=== PATIENT | male | born 2000 | race Hispanic/Latino ===

== ENCOUNTER 2022-08-09 00:03 | Emergency (ER) | payer SELFPAY ==
--- OUTSIDE RECORDS SUMMARY | 2022-08-09 00:11 | XMS REPORT | Continuity of Care Document ---
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 Interpretation Comments AGAP (test code = AGAP) 12.5 10.0-20.0 [facility]2018-08-12 09:47:00 Test Item Value Reference Range Interpretation Comments B/C Ratio (test code = B/C Ratio) 13 1 6-25 [facility]2018-08-12 09:47:00 Test Item Value Reference Range Interpretation Comments AST (test code = AST) 13 See_Comment [Auto mated message] The system which ge nerated this result transmit ria reference range : <=37. The reference range was not used to interpr et this result as bennett l/abnormal. [facility]2018-08-12 09:47:00 Test Item Value Reference Range Interpretation Comments Alk Phos (test code = Alk Phos) 72 39-136 [facility]2018-08-12 09:47:00 Test Item Value Reference Range Interpretation Comments ALT (test code = ALT) 17 See_Comment [Auto mated message] The system which ge nerated this result transmit ria reference range : <=65. The reference range was not used to interpr et this result as bennett l/abnormal. [facility]2018-08-12 09:47:00 Test Item Value Reference Range Interpretation Comments eGFR (test code = eGFR) 131 [facility]2018-08-12 09:47:00 Test Item Value Reference Range Interpretation Comments Bili Total (test code = Bili Total) 0.4 0.2-1.3 [facility]2018-08-12 09:47:00 Test Item Value Reference Range Interpretation Comments Albumin Lvl (test code = Albumin Lvl) 4.2 3.5-5.0 [facility]2018-08-12 09:47:00 Test Item Value Reference Range Interpretation Comments Calcium Lvl (test code = Calcium Lvl) 8.7 8.5-10.5 [facility]2018-08-12 09:47:00 Test Item Value Reference Range Interpretation Comments Total Protein (test code = Total 8.1 6.4-8.4 Protein) [facility]2018-08-12 09:47:00 Test Item Value Reference Range Interpretation Comments Chloride Lvl (test code = Chloride Lvl) 108 95-109 [place] [id number] 09:47:00 Test Item Value Reference Range Interpretation Comments CO2 (test code = CO2) 27 24-32 [facility] PlayCanvasannCHEM [id number] 09:47:00 Test Item Value Reference Range Interpretation Comments Potassium Lvl (test code = Potassium 3.5 3.5-5.1 Lvl) [facility] Centerann[facility]inalysis [id number] 11:03:00 Test Item Value Reference Range Interpretation Comments Color (test code = COLOR) Yellow Yellow,Straw,Pl N yellow Clarity (test code = Clear Clear N CLAR) Specific [place] (test 1.008 1.001-1.035 N code = SPGR) pH (test code = PH) 6.5 5.0-9.0 N Ketone (test code = KET) 50 mg/dL Negative A Glucose (test code = Negative mg/dL Negative N GLUCUR) Protein (test code = Negative mg/dL Negative N PROT) Bilirubin (test code = Negative mg/dL Negative N BILI) Occult Blood (test code = Small Negative A UDOB) Urobilinogen (test code = 0.2 mg/dL 0.2-1.0 N UROB) Nitrite (test code = NIT) Negative Negative N Leuk Esterase (test code Negative Negative N = LEUK) Micros Exam (test code = Indicated MEXAM) Epithelial Cells (test 3-5 /LPF 0-30 A code = EPI) WBC, Urine (test code = 0-5 /HPF 0-5 N UWBC) RBC, Urine (test code = 0-3 /HPF 0-5 A URBC) Bacteria (test code = Few /HPF BACT) [id number] 10:50:00 Test Item Value Reference Range Interpretation Comments Amphetamine (test code Negative Negative N For d iagnostic purposes = AMPH) only, positive results should always b e assessedin conjunctionwith the patient's medic al history,clinica l examination and otherfindings.T o fulfill legal requirements, a more specific altern ate chemical method must be used inorder to obtain a Confirmed iva lytical result. GC/MS i s the preferred confi rmatory method. Barbiturates (test Negative Negative N code = IVET) Benzodiazepine (test Negative Negative N code = MARIA ALEJANDRA) Cocaine (test code = Negative Negative N COCA) Methadone (test code = Negative Negative N MTHD) Opiates (test code = Negative Negative N OPIA) PCP (test code = PCP) Negative Negative N Propoxyphene (test Negative Negative N code = PROPOX) THC (test code = THC) POSITIVE Negative A [id number] 18:39:00 Test Item Value Reference Range Interpretation Comments Lymphocytes (test code = Lymphocytes) 22.2 20.0-40.0 [id number] 18:39:00 Test Item Value Reference Range Interpretation Comments Platelet (test code = Platelet) 241 133-450 [id number] 18:39:00 Test Item Value Reference Range Interpretation Comments RDW (test code = RDW) 13.6 11.5-14.5 [facility] H[id number] 18:39:00 Test Item Value Reference Range Interpretation Comments MPV (test code = MPV) 8.6 7.4-10.4 [facility] Hospit[id number] 18:39:00 Test Item Value Reference Range Interpretation Comments MCH (test code = MCH) 30.6 pg 27.0-31.0 [facility] Hospit[id number] 18:39:00 Test Item Value Reference Range Interpretation Comments MCHC (test code = MCHC) 33.4 32.0-36.0 [facility] [id number] 18:39:00 Test Item Value Reference Range Interpretation Comments Hgb (test code = Hgb) 12.6 14.0-18.0 [facility] H[id number] 18:39:00 Test Item Value Reference Range Interpretation Comments Hct (test code = Hct) 37.7 42.0-54.0 [facility] HospitalKachichVVJHNLWUHB2087-28-51 18:39:00 Test Item Value Reference Range Interpretation Comments MCV (test code = MCV) 91.7 80.0-94.0 [facility] Hospit[id number] 18:39:00 Test Item Value Reference Range Interpretation Comments WBC (test code = WBC) 9.7 3.7-10.4 [facility] Hospit[id number] 18:39:00 Test Item Value Reference Range Interpretation Comments RBC (test code = RBC) 4.11 4.70-6.10 [facility] H[id number] 18:39:00 Test Item Value Reference Range Interpretation Comments Segs-Bands # (test code = Segs-Bands #) 6.9 1.5-8.1 [facility] H[id number] 18:39:00 Test Item Value Reference Range Interpretation Comments Lymphocytes # (test code = Lymphocytes 2.2 1.0-5.5 #) [facility] Hospit[id number] 18:39:00 Test Item Value Reference Range Interpretation Comments Monocytes # (test code 0.5 See_Comment [Aut omated message] The = Monocytes #) system which generated this result tra nsmitted reference range : <=0.8. The reference r becki was not used to int erpret this result as normal/abnormal . [facility] HospitalTwwjlmrTZEYFINQMD7095-20-77 18:39:00 Test Item Value Reference Range Interpretation Comments Monocytes (test code = Monocytes) 4.7 2.0-12.0 [facility] Hospit[id number] 18:39:00 Test Item Value Reference Range Interpretation Comments Eosinophils # (test code 0.1 See_Comment [A utomated message] The = Eosinophils #) system wh h generated this result tra nsmitted reference range : <=0.5. The reference r becki was not used to int erpret this result as normal/abnormal . [facility] H[id number] 18:39:00 Test Item Value Reference Range Interpretation Comments Basophils # (test code 0.1 See_Comment [Aut omated message] The = Basophils #) system which generated this result tra nsmitted reference range : <=0.2. The reference r becki was not used to int erpret this result as normal/abnormal . [facility] Ho[id number] 18:39:00 Test Item Value Reference Range Interpretation Comments Eosinophils (test code = 1.3 See_Comment [A utomated message] The Eosinophils) system which ge nerated this result tra nsmitted reference range : <=4.0. The reference r becki was not used to int erpret this result as normal/abnormal . [facility] HospitalLssngljODCEEQCWYL6930-29-30 18:39:00 Test Item Value Reference Range Interpretation Comments Basophils (test code = 0.8 See_Comment [Aut omated message] The Basophils) system which ge nerated this result tra nsmitted reference range : <=1.0. The reference r becki was not used to int erpret this result as normal/abnormal . [facility] CenterTpxleqiEHARTYQQQK0762-03-78 18:39:00 Test Item Value Reference Range Interpretation Comments Segs (test code = Segs) 71.0 45.0-75.0 [facility] AND [id number] 15:25:00 Test Item Value Reference Range Interpretation Comments UA Mucus (test code = UA Mucus) Few /LPF [facility] AND [id number] 15:25:00 Test Item Value Reference Range Interpretation Comments UA Urobilinogen (test code = UA <=1.0 mg/dL 0.1-1.0 Urobilinogen) [facility] AND [id number] 15:25:00 Test Item Value Reference Range Interpretation Comments UA Color (test code = Yellow *NA*(04/21/15 UA Color) 10:25 AM) [facility] AND [id number] 15:25:00 Test Item Value Reference Range Interpretation Comments UA Spec Grav (test code = UA Spec Grav) 1.012 [facility] AND [id number] 15:25:00 Test Item Value Reference Range Interpretation Comments UA Turbidity (test code = Clear (04/21/15 10:25 UA Turbidity) AM) [facility] AND [id number] 15:25:00 Test Item Value Reference Range Interpretation Comments UA Ketones (test code = UA Negative mg/dL Ketones) [facility] AND [id number] 15:25:00 Test Item Value Reference Range Interpretation Comments UA pH (test code = UA pH) 6.0 5.0-8.0 [facility] AND [id number] 15:25:00 Test Item Value Reference Range Interpretation Comments UA Glucose (test code = UA Negative mg/dL Glucose) [facility] AND [id number] 15:25:00 Test Item Value Reference Range Interpretation Comments UA Protein (test code = UA Negative mg/dL Protein) [facility] AND [id number] 15:25:00 Test Item Value Reference Range Interpretation Comments UA Leuk Est (test Negative (04/21/15 10:25 code = UA Leuk Est) AM) [facility] AND [id number] 15:25:00 Test Item Value Reference Range Interpretation Comments UA Nitrite (test code Negative (04/21/15 10:25 = UA Nitrite) AM) [facility] AND [id number] 15:25:00 Test Item Value Reference Range Interpretation Comments UA Blood (test code = Negative (04/21/15 10:25 UA Blood) AM) [facility] AND [id number] 15:25:00 Test Item Value Reference Range Interpretation Comments UA Bili (test code = Negative *NA*(04/21/15 UA Bili) 10:25 AM) [facility] AND [id number] 15:25:00 Test Item Value Reference Range Interpretation Comments UA WBC (test code = no gt See_Comment [Automa ria message] The UA WBC) system which ge nerated this result transmit ria reference range : <=5. The reference range was not used to interpr et this result as bennett l/abnormal. [facility] AND [id number] 15:25:00 Test Item Value Reference Range Interpretation Comments UA RBC (test code = 1 See_Comment [Automa ria message] The UA RBC) system which ge nerated this result transmit ria reference range : <=2. The reference range was not used to interpr et this result as bennett l/abnormal. [facility] AND [id number] 15:25:00 Test Item Value Reference Range Interpretation Comments UA Sq Epi (test code = UA Sq Occasional /LPF Epi) [facility]2015-06-12 10:03:00 Test Item Value Reference Range Interpretation Comments eGFR (test code = eGFR) 89 [facility]2015-06-12 10:03:00 Test Item Value Reference Range Interpretation Comments CO2 (test code = CO2) 23 24-32 [facility]2015-06-12 10:03:00 Test Item Value Reference Range Interpretation Comments Potassium Lvl (test code = Potassium 4.5 3.5-5.1 Lvl) [facility]2015-06-12 10:03:00 Test Item Value Reference Range Interpretation Comments Creatinine Lvl (test code = Creatinine 0.8 0.5-1.4 Lvl) [facility]2015-06-12 10:03:00 Test Item Value Reference Range Interpretation Comments Chloride Lvl (test code = Chloride Lvl) 104 95-109 [facility] [id number] 10:03:00 Test Item Value Reference Range Interpretation Comments AGAP (test code = AGAP) 12.5 10.0-20.0 [facility] Center[facility] [id number] 10:03:00 Test Item Value Reference Range Interpretation Comments Calcium Lvl (test code = Calcium Lvl) 8.3 8.5-10.5 [facility] [id number] 10:03:00 Test Item Value Reference Range Interpretation Comments Sodium Lvl (test code = Sodium Lvl) 135 135-145 [facility] [id number] 10:03:00 Test Item Value Reference Range Interpretation Comments Glucose Lvl (test code = Glucose Lvl) 119 70-99 [facility] [id number] 10:03:00 Test Item Value Reference Range Interpretation Comments BUN (test code = BUN) 17 7-22 [facility] CenterSprig Toys [id number] 10:03:00 Test Item Value Reference Range Interpretation Comments U Amph Scr (test code Negative *NA*(04/20/15 = U Amph Scr) 5:03 AM) [facility] CenterDR[facility] [id number] 10:03:00 Test Item Value Reference Range Interpretation Comments U Cocaine Scr (test Negative *NA*(04/20/15 code = U Cocaine Scr) 5:03 AM) [facility] CenterSpr[facility] Toys [id number] 10:03:00 Test Item Value Reference Range Interpretation Comments U Benzodia Scr (test Positive *ABN*(04/20/15 code = U Benzodia Scr) 5:03 AM) [facility] CenterDR[facility] [id number] 10:03:00 Test Item Value Reference Range Interpretation Comments U Ivet Scr (test code Negative *NA*(04/20/15 = U Ivet Scr) 5:03 AM) [facility] CenterDR[facility] [id number] 10:03:00 Test Item Value Reference Range Interpretation Comments U Cannab Scr (test Positive *ABN*(04/20/15 code = U Cannab Scr) 5:03 AM) [facility] CenterSpr[facility] To[facility] [id number] 10:03:00 Test Item Value Reference Range Interpretation Comments UDS Note (test code = See Note 6(04/20/15 5:03 UDS Note) AM) [facility] CenterDR[facility] [id number] 10:03:00 Test Item Value Reference Range Interpretation Comments U Phencyc Scr (test Negative *NA*(04/20/15 code = U Phencyc Scr) 5:03 AM) [facility] CenterDR[facility] [id number] 10:03:00 Test Item Value Reference Range Interpretation Comments U Opiate Scr (test Positive *ABN*(04/20/15 code = U Opiate Scr) 5:03 AM) [facility] Hos[id number] 10:03:00 Test Item Value Reference Range Interpretation Comments PTT (test code = PTT) 24.2 s 22.9-35.8 [facility] H[id number] 10:03:00 Test Item Value Reference Range Interpretation Comments Monocytes # (test code 1.0 See_Comment [Aut omated message] The = Monocytes #) system which generated this result tra nsmitted reference range : <=0.8. The reference r becki was not used to int erpret this result as normal/abnormal . [facility] H[id number] 10:03:00 Test Item Value Reference Range Interpretation Comments Basophils # (test code 0.1 See_Comment [Aut omated message] The = Basophils #) system which generated this result tra nsmitted reference range : <=0.2. The reference r becki was not used to int erpret this result as normal/abnormal . [facility] H[id number] 10:03:00 Test Item Value Reference Range Interpretation Comments Lymphocytes # (test code = Lymphocytes 2.7 1.0-5.5 #) [facility] Hospit[id number] 10:03:00 Test Item Value Reference Range Interpretation Comments Segs-Bands # (test code = Segs-Bands #) 12.6 1.5-8.1 [facility] Hospit[id number] 10:03:00 Test Item Value Reference Range Interpretation Comments Basophils (test code = 0.4 See_Comment [Aut omated message] The Basophils) system which ge nerated this result tra nsmitted reference range : <=1.0. The reference r becki was not used to int erpret this result as normal/abnormal . [facility] HospitalAhmftcnBVRZJLQHZQ0196-31-10 10:03:00 Test Item Value Reference Range Interpretation Comments Monocytes (test code = Monocytes) 6.1 2.0-12.0 [facility] Ho[id number] 10:03:00 Test Item Value Reference Range Interpretation Comments Segs (test code = Segs) 76.9 45.0-75.0 [facility] HospitalAvwavbgSEDIMKWMSY0478-00-53 10:03:00 Test Item Value Reference Range Interpretation Comments Eosinophils (test code = 0.1 See_Comment [A utomated message] The Eosinophils) system which ge nerated this result tra nsmitted reference range : <=4.0. The reference r becki was not used to int erpret this result as normal/abnormal . [facility] HospitalPayjibcMZVGRJCZNH5740-51-70 10:03:00 Test Item Value Reference Range Interpretation Comments Lymphocytes (test code = Lymphocytes) 16.5 20.0-40.0 [facility] Hospit[id number] 10:03:00 Test Item Value Reference Range Interpretation Comments Platelet (test code = Platelet) 234 133-450 [facility] Hospit[id number] 10:03:00 Test Item Value Reference Range Interpretation Comments RDW (test code = RDW) 13.3 11.5-14.5 [facility] Ho[id number] 10:03:00 Test Item Value Reference Range Interpretation Comments MPV (test code = MPV) 7.9 7.4-10.4 [facility] Hospit[id number] 10:03:00 Test Item Value Reference Range Interpretation Comments MCHC (test code = MCHC) 34.2 32.0-36.0 [facility] HospitalMolwztyJFRAAZVHMU2862-16-15 10:03:00 Test Item Value Reference Range Interpretation Comments RBC (test code = RBC) 4.48 4.70-6.10 [facility] Hospit[id number] 10:03:00 Test Item Value Reference Range Interpretation Comments WBC (test code = WBC) 16.4 3.7-10.4 [facility] Hospit[id number] 10:03:00 Test Item Value Reference Range Interpretation Comments Hct (test code = Hct) 41.0 42.0-54.0 [facility] Hospit[id number] 10:03:00 Test Item Value Reference Range Interpretation Comments MCV (test code = MCV) 91.5 80.0-94.0 [facility] Hospit[id number] 10:03:00 Test Item Value Reference Range Interpretation Comments Hgb (test code = Hgb) 14.0 14.0-18.0 [facility] HospitalJdnivpoNZGBHRHWLF1746-94-09 10:03:00 Test Item Value Reference Range Interpretation Comments MCH (test code = MCH) 31.3 pg 27.0-31.0 [facility] AND [id number] 10:03:00 Test Item Value Reference Range Interpretation Comments UA Spec Grav (test >=1.050 *ABN*(04/20/15 code = UA Spec Grav) 5:03 AM) [facility] AND [id number] 10:03:00 Test Item Value Reference Range Interpretation Comments UA Urobilinogen (test code = UA <=1.0 mg/dL 0.1-1.0 Urobilinogen) [facility] AND [id number] 10:03:00 Test Item Value Reference Range Interpretation Comments UA Mucus (test code = UA Mucus) Few /LPF [facility] AND [id number] 10:03:00 Test Item Value Reference Range Interpretation Comments UA Sq Epi (test code = UA Sq Epi) Few /LPF [facility] AND [id number] 10:03:00 Test Item Value Reference Range Interpretation Comments UA RBC (test code = 8 See_Comment [Automa ria message] The UA RBC) system which ge nerated this result transmit ria reference range : <=2. The reference range was not used to interpr et this result as bennett l/abnormal. [facility] AND [id number] 10:03:00 Test Item Value Reference Range Interpretation Comments UA Nitrite (test code Negative (04/20/15 5:03 = UA Nitrite) AM) [facility] AND [id number] 10:03:00 Test Item Value Reference Range Interpretation Comments UA Blood (test code = Trace *ABN*(04/20/15 UA Blood) 5:03 AM) [facility] AND [id number] 10:03:00 Test Item Value Reference Range Interpretation Comments UA Leuk Est (test Negative (04/20/15 5:03 code = UA Leuk Est) AM) [facility] AND [id number] 10:03:00 Test Item Value Reference Range Interpretation Comments UA Glucose (test code = UA Negative mg/dL Glucose) [facility] AND [id number] 10:03:00 Test Item Value Reference Range Interpretation Comments UA Ketones (test code = UA Negative mg/dL Ketones) [facility] AND [id number] 10:03:00 Test Item Value Reference Range Interpretation Comments UA Bili (test code = Negative *NA*(04/20/15 UA Bili) 5:03 AM) [facility] AND [id number] 10:03:00 Test Item Value Reference Range Interpretation Comments UA Protein (test code = UA Protein) 30 mg/dL [facility] AND [id number] 10:03:00 Test Item Value Reference Range Interpretation Comments UA Color (test code = Yellow *NA*(04/20/15 UA Color) 5:03 AM) [facility] AND [id number] 10:03:00 Test Item Value Reference Range Interpretation Comments UA pH (test code = UA pH) 6.0 5.0-8.0 [facility] AND [id number] 10:03:00 Test Item Value Reference Range Interpretation Comments UA Turbidity (test code = Clear (04/20/15 5:03 UA Turbidity) AM) [facility] CentermusiXmatch [facility] [id number] 02:51:00 Test Item Value Reference Range Interpretation Comments Antibody Scrn (test Negative (04/19/15 9:51 code = Antibody Scrn) PM) [facility] [employer] [facility] [id number] 02:51:00 Test Item Value Reference Range Interpretation Comments ABO/Rh (test code = ABO/Rh) B POS [facility] NuikuCHEM [id number] 02:41:00 Test Item Value Reference Range Interpretation Comments Lactic Acid Lvl (test code = Lactic 1.3 0.5-2.2 Acid Lvl) [facility][id number] 02:41:00 Test Item Value Reference Range Interpretation Comments AGAP (test code = AGAP) 15.7 10.0-20.0 [facility] HospitalEyvjzapCYYIILHBQYBN7831-78-75 02:41:00 Test Item Value Reference Range Interpretation Comments eGFR (test code = eGFR) 82 [facility]UcezijePYXPIPMAXYVF5454-80-26 02:41:00 Test Item Value Reference Range Interpretation Comments Creatinine Lvl (test code = Creatinine 0.9 0.5-1.4 Lvl) [id number] 02:41:00 Test Item Value Reference Range Interpretation Comments BUN (test code = BUN) 16 7-22 [id number] 02:41:00 Test Item Value Reference Range Interpretation Comments Glucose Lvl (test code = Glucose Lvl) 98 70-99 [facility]JziinylZFSAYNTCUQOZ6496-17-29 02:41:00 Test Item Value Reference Range Interpretation Comments Calcium Lvl (test code = Calcium Lvl) 8.9 8.5-10.5 [facility]UpcozjzVSUWWNNRYYEX8704-19-07 02:41:00 Test Item Value Reference Range Interpretation Comments CO2 (test code = CO2) 26 24-32 [facility]YnjbdqaCNFPDGLBEVOY4728-53-70 02:41:00 Test Item Value Reference Range Interpretation Comments Chloride Lvl (test code = Chloride Lvl) 101 95-109 [facility] HospitalBlhznnoPCNWAEQTYVFZ0714-75-68 02:41:00 Test Item Value Reference Range Interpretation Comments Potassium Lvl (test code = Potassium 3.7 3.5-5.1 Lvl) [facility] HospitalOchenfcRWDOXVPOQHEM9665-00-34 02:41:00 Test Item Value Reference Range Interpretation Comments Sodium Lvl (test code = Sodium Lvl) 139 135-145 [facility]JswskqvVWOZDNDVUC4612-91-67 02:41:00 Test Item Value Reference Range Interpretation Comments WBC (test code = WBC) 12.4 3.7-10.4 [facility] HospitalHmlfrffVSQQZSJXTZ8341-63-10 02:41:00 Test Item Value Reference Range Interpretation Comments RBC (test code = RBC) 4.97 4.70-6.10 [facility] HospitalBlgqjnyRUWKEZQHVW2918-96-64 02:41:00 Test Item Value Reference Range Interpretation Comments Hgb (test code = Hgb) 14.2 14.0-18.0 [facility] HospitalAdttdgmQOWQZVROLH8286-77-39 02:41:00 Test Item Value Reference Range Interpretation Comments Hct (test code = Hct) 45.0 42.0-54.0 [facility] HospitalSvjqlhyBHFTGSVSLQ2138-96-60 02:41:00 Test Item Value Reference Range Interpretation Comments MCV (test code = MCV) 90.4 80.0-94.0 [facility] HospitalZbotoesMUARHWSUDG0871-91-75 02:41:00 Test Item Value Reference Range Interpretation Comments MCH (test code = MCH) 28.6 pg 27.0-31.0 [facility] HospitalRgmngkbQWJLSLQEXL6883-91-43 02:41:00 Test Item Value Reference Range Interpretation Comments MCHC (test code = MCHC) 31.7 32.0-36.0 [facility] Hospit[id number] 02:41:00 Test Item Value Reference Range Interpretation Comments RDW (test code = RDW) 12.6 11.5-14.5 [facility] HospitalFfpusucVBJCAPODEJ0229-49-24 02:41:00 Test Item Value Reference Range Interpretation Comments Platelet (test code = Platelet) 259 133-450 [facility] HospitalIugtusjYCKEFIZQLJ1748-20-19 02:41:00 Test Item Value Reference Range Interpretation Comments MPV (test code = MPV) 8.2 7.4-10.4 [facility] HospitalOdigevtRWEMBOLLWY0257-67-26 02:41:00 Test Item Value Reference Range Interpretation Comments G-value (test code = G-value) 7.7 5.0-11.6 [facility] HospitalGdxaxszQMCDPQGBII5297-24-67 02:41:00 Test Item Value Reference Range Interpretation Comments Estimated % Lysis (test 10.9 See_Comment [Au tomated message] The code = Estimated % system wh ich generated Lysis) this result tra nsmitted reference range : <=7.5. The reference r becki was not used to int erpret this result as normal/abnormal . [facility] HospitalEsouurqRKNZDWPBHQ2046-04-52 02:41:00 Test Item Value Reference Range Interpretation Comments Max Amp (test code = Max Amp) 61 mm 52-71 [facility] HospitalMftkcqpXNZQMAMDSC4866-54-18 02:41:00 Test Item Value Reference Range Interpretation Comments Angle (test code = Angle) 72 degrees 64-80 [facility] HospitalKpdhjugECSUUTHTOA5685-24-29 02:41:00 Test Item Value Reference Range Interpretation Comments R-time (test code = R-time) 0.8 min 0.4-0.7 [facility] HospitalCmmfskxGDYXHBXTMM8554-19-58 02:41:00 Test Item Value Reference Range Interpretation Comments K-time (test code = K-time) 1.4 min 0.6-2.3 [facility] HospitalYniinrcMEFGSVDYOP2700-50-21 02:41:00 Test Item Value Reference Range Interpretation Comments Split Point (test code = Split Point) 0.6 min [facility] HospitalZeyzyghMVLCYQTIGU0993-28-33 02:41:00 Test Item Value Reference Range Interpretation Comments ACT (TEG) (test code = ACT (TEG)) 121 s 86-118 [facility] HospitalNpcsbwuTQEWOCPQUS6091-02-63 02:41:00 Test Item Value Reference Range Interpretation Comments Rapid TEG Sample Type Citrated Whole Blood (test code = Rapid TEG Sample Type) [facility] HospitalTubhezcPDEVFCEPNU3961-39-14 02:41:00 Test Item Value Reference Range Interpretation Comments RBC Morph (test code = Normal (04/19/15 9:41 RBC Morph) PM) [facility] HospitalNunponkWACENJJWWO9423-19-32 02:41:00 Test Item Value Reference Range Interpretation Comments Plt Morph (test code = Normal (04/19/15 9:41 Plt Morph) PM) [facility] HospitalUvcvuooFJFOSVRGGT8688-18-57 02:41:00 Test Item Value Reference Range Interpretation Comments Tot Cell Ct (test code = Tot Cell Ct) 100 1 [facility] Hospit[id number] 02:41:00 Test Item Value Reference Range Interpretation Comments Basophils (test code = 1.0 See_Comment [Aut omated message] The Basophils) system which ge nerated this result tra nsmitted reference range : <=1.0. The reference r becki was not used to int erpret this result as normal/abnormal . [facility] HospitalIemfdksSPXIBXLHIG6899-24-98 02:41:00 Test Item Value Reference Range Interpretation Comments Atypical Lymphs (test code = Atypical 1.0 Lymphs) [facility] HospitalTzpuknnMFJGJAYFUQ6461-90-86 02:41:00 Test Item Value Reference Range Interpretation Comments Lymphocytes (test code = Lymphocytes) 32.0 20.0-40.0 [facility] HospitalQzlgtmuCMGPBALZED6177-27-31 02:41:00 Test Item Value Reference Range Interpretation Comments Monocytes (test code = Monocytes) 5.0 2.0-12.0 [facility] Hospit[id number] 02:41:00 Test Item Value Reference Range Interpretation Comments Bands (test code = 0.0 See_Comment [Automat ed message] The Bands) system which ge nerated this result transmit ria reference range : <=11.0. The reference r becki was not used to interpr et this result as bennett l/abnormal. [facility] HospitalPhlihogPWRXCLXAXE5002-11-56 02:41:00 Test Item Value Reference Range Interpretation Comments Monocytes # (test code 0.6 See_Comment [Aut omated message] The = Monocytes #) system which generated this result tra nsmitted reference range : <=0.8. The reference r becki was not used to int erpret this result as normal/abnormal . [facility] Ho[id number] 02:41:00 Test Item Value Reference Range Interpretation Comments Basophils # (test code 0.1 See_Comment [Aut omated message] The = Basophils #) system which generated this result tra nsmitted reference range : <=0.2. The reference r becki was not used to int erpret this result as normal/abnormal . [facility] HospitalGgnwdivHCOAUQLOHZ9534-93-28 02:41:00 Test Item Value Reference Range Interpretation Comments Lymphocytes # (test code = Lymphocytes 4.1 1.0-5.5 #) [facility] Hos[id number] 02:41:00 Test Item Value Reference Range Interpretation Comments Segs (test code = Segs) 61.0 45.0-75.0 [facility] HospitalDvjjbjvMKNUSBPFAV6507-92-34 02:41:00 Test Item Value Reference Range Interpretation Comments Segs-Bands # (test code = Segs-Bands #) 7.6 1.5-8.1 [place] [id number] 02:34:00 Test Item Value Reference Range Interpretation Comments Ethanol Lvl (test code = Ethanol Lvl) 3 [place] [id number] 02:34:00 Test Item Value Reference Range Interpretation Comments Etoh (%) (test code = Etoh (%)) 0.003 [facility]
[2022-08-09] MEDS ORDERED: LIDOCAINE 1% MPF 30 ML VIAL ONE (00:41)
--- NOTE | 2022-08-09 00:51 | EDPHYS ---
Physician Documentation [facility] Name: Abhijit Urrutia Age: 22 yrs Sex: Male : 2000 Arrival Date: 08/09/2022 Time: 00:06 Bed 6 Private MD: GILMA Physician Josh Villarreal HPI: 08/09 00:46 This 22 yrs old Male presents to ER via Ambulatory with complaints of seth Laceration To Hand. 00:46 The patient has a laceration related to: playing, from a sharp metal object, occurred seth at home. The laceration(s) is(are) located on the Left first web space. Onset: The symptoms/episode began/occurred just prior to arrival. Associated signs and symptoms: The patient has no apparent associated signs or symptoms. The patient has not experienced similar symptoms in the past. Historical: - Allergies: 00:12 NKA; as6 - PMHx: 00:12 ADD/ADHD; Seizures; as6 - PSHx: 00:12 arm; as6 - Immunization history:: Client reports having NOT received the Covid vaccine. Last tetanus immunization: not immunized. - Social history:: Smoking status: Patient reports the use of cigarette tobacco products, smokes one pack cigarettes per day. ROS: 00:47 Constitutional: Negative for fever, chills, and weight loss, Eyes: Negative for injury, seth pain, redness, and discharge, ENT: Negative for injury, pain, and discharge, Neck: Negative for injury, pain, and swelling, Cardiovascular: Negative for chest pain, palpitations, and edema, Respiratory: Negative for shortness of breath, cough, wheezing, and pleuritic chest pain, Abdomen/GI: Negative for abdominal pain, nausea, vomiting, diarrhea, and constipation, Back: Negative for injury and pain, : Negative for injury, bleeding, discharge, and swelling, Skin: Negative for injury, rash, and discoloration, Neuro: Negative for headache, weakness, numbness, tingling, and seizure, Psych: Negative for depression, anxiety, suicide ideation, homicidal ideation, and hallucinations, Allergy/Immunology: Negative for hives, rash, and allergies, Endocrine: Negative for neck swelling, polydipsia, polyuria, polyphagia, and marked weight changes, Hematologic/Lymphatic: Negative for swollen nodes, abnormal bleeding, and unusual bruising. 00:47 MS/extremity: Positive for laceration, of the left hand. Exam: 00:47 Constitutional: This is a well developed, well nourished patient who is awake, alert, seth and in no acute distress. Head/Face: Normocephalic, atraumatic. Eyes: Pupils equal round and reactive to light, extra-ocular motions intact. Lids and lashes normal. Conjunctiva and sclera are non-icteric and not injected. Cornea within normal limits. Periorbital areas with no swelling, redness, or edema. ENT: Nares patent. No nasal discharge, no septal abnormalities noted. Tympanic membranes are normal and external auditory canals are clear. Oropharynx with no redness, swelling, or masses, exudates, or evidence of obstruction, uvula midline. Mucous membranes moist. Neck: Trachea midline, no thyromegaly or masses palpated, and no cervical lymphadenopathy. Supple, full range of motion without nuchal rigidity, or vertebral point tenderness. No Meningismus. Chest/axilla: Normal chest wall appearance and motion. Nontender with no deformity. No lesions are appreciated. Cardiovascular: Regular rate and rhythm with a normal S1 and S2. No gallops, murmurs, or rubs. Normal PMI, no JVD. No pulse deficits. Respiratory: Lungs have equal breath sounds bilaterally, clear to auscultation and percussion. No rales, rhonchi or wheezes noted. No increased work of breathing, no retractions or nasal flaring. Abdomen/GI: Soft, non-tender, with normal bowel sounds. No distension or tympany. No guarding or rebound. No evidence of tenderness throughout. Back: No spinal tenderness. No costovertebral tenderness. Full range of motion. Male : Normal genitalia with no discharge or lesions. Skin: Warm, dry with normal turgor. Normal color with no rashes, no lesions, and no evidence of cellulitis. Neuro: Awake and alert, GCS 15, oriented to person, place, time, and situation. Cranial nerves II-XII grossly intact. Motor strength 5/5 in all extremities. Sensory grossly intact. Cerebellar exam normal. Normal gait. Psych: Awake, alert, with orientation to person, place and time. Behavior, mood, and affect are within normal limits. 00:47 Musculoskeletal/extremity: ROM: full active range of motion, full passive range of motion, Circulation is intact in all extremities. Sensation intact. Compartment Syndrome exam of affected extremity: is normal. Vital Signs: 00:09 BP 121 / 53; Pulse 94; Resp 16 S; Temp 98.1(O); Pulse Ox 99% on R/A; Weight 90.72 kg as6 (R); Height 5 ft. 4 in. (162.56 cm) (M); Pain 7/10; 01:45 BP 126 / 63; Pulse 98; Resp 17 S; Temp 98.6(O); Pulse Ox 100% on R/A; Pain 0/10; aa9 00:09 Body Mass Index 34.33 (90.72 kg, 162.56 cm) as6 Laceration: 01:35 Wound Repair of 5cm ( 2.0in ) subcutaneous laceration to Left first web space and left seth hand. Distal neuro/vascular/tendon intact. Anesthesia: Local anesthetic administered with 8 mls of 1% lidocaine. Wound prep: Simple cleansing by me. Skin closed with 6 5-0 Prolene using interrupted sutures and sterile technique. Dressed with Neosporin. Patient tolerated well. MDM: 00:37 Patient medically screened. seth 00:45 Patient medically screened. seth 00:48 Differential diagnosis: superficial laceration. Data reviewed: vital signs, nurses seth notes. Data interpreted: secured entrance monitor: rate is 94 beats/min, rhythm is regular, Pulse oximetry: on room air is 99 %. Counseling: I had a detailed discussion with the patient and/or guardian regarding: the historical points, exam findings, and any diagnostic results supporting the discharge/admit diagnosis, the need for outpatient follow up, for definitive care, Administered Medications: No medications were administered Disposition Summary: 08/09/22 00:51 Discharge Ordered Location: Home [facility] Problem: new seth Symptoms: have improved seth Condition: Stable seth Diagnosis - Laceration without foreign body of left hand seth Followup: seth - With: Private Physician - When: 1 week - Reason: Recheck today's complaints, Continuance of care, Re-evaluation by your physician Discharge Instructions: - Discharge Summary Sheet seth - Laceration Care, Adult seth - Laceration Care, Adult, [id number]-Pmdi seth Forms: - Medication Reconciliation Form seth - Thank You Letter seth - Antibiotic Education seth - Prescription Opioid Use seth Prescriptions: - Centany 2 % Topical ointment - apply 1 application by TOPICAL route 3 times per day; 30 gram; Refills: 0, seth Product Selection Permitted - Cephalexin 500 mg Oral Capsule - take 1 capsule by ORAL route every 6 hours for 7 days; 28 capsule; Refills: 0, seth Product Selection Permitted Signatures: Josh Villarreal MD MD cha Slawson, Ashby, RN RN as6 Lynda Benson RN RN aa9
--- NOTE | 2022-08-09 00:51 | ER ---
Nurse's Notes [facility] Name: Abhijit Urrutia Age: 22 yrs Sex: Male : 2000 Arrival Date: 08/09/2022 Time: 00:06 Bed 6 Private MD: Diagnosis: Laceration without foreign body of left hand Presentation: 08/09 00:09 Chief complaint: Friend and/or Co-Worker states: "we were cooking and when I handed him as6 the knife it slipped" pt has a laceration to left hand. Coronavirus screen: At this time, the client does not indicate any symptoms associated with coronavirus-19. Ebola Screen: No symptoms or risks identified at this time. Complicating Factors: There are no complicating factors for this patient. Initial Sepsis Screen: Does the patient meet any 2 criteria? No. Patient's initial sepsis screen is negative. Does the patient have a suspected source of infection? No. Patient's initial sepsis screen is negative. Risk Assessment: Do you want to hurt yourself or someone else? Patient reports no desire to harm self or others. Onset of symptoms was August 09, 2022. 00:09 Method Of Arrival: Ambulatory as6 00:09 Acuity: CANDICE 4 as6 Triage Assessment: 00:13 General: Appears in no apparent distress. Behavior is calm, cooperative, quiet. Pain: as6 Complains of pain in left hand. Injury Description: Laceration sustained to left hand. Historical: - Allergies: 00:12 NKA; as6 - PMHx: 00:12 ADD/ADHD; Seizures; as6 - PSHx: 00:12 arm; as6 - Immunization history:: Client reports having NOT received the Covid vaccine. Last tetanus immunization: not immunized. - Social history:: Smoking status: Patient reports the use of cigarette tobacco products, smokes one pack cigarettes per day. Screenin:31 Abuse screen: Denies threats or abuse. Denies injuries from another. Nutritional aa9 screening: No deficits noted. Tuberculosis screening: No symptoms or risk factors identified. Fall Risk None identified. Assessment: 00:28 General: Appears comfortable, Behavior is cooperative, quiet. Pain: Complains of pain aa9 in left hand Pain currently is 8 out of 10 on a pain scale. Noted to be grimacing, resistant to movement. Neuro: Level of Consciousness is awake, alert, obeys commands, Oriented to person, place, time, situation. Cardiovascular: Patient's skin is warm and dry. Respiratory: Airway is patent Respiratory effort is even, unlabored. Musculoskeletal:. Injury Description: Laceration sustained to left hand is 2.6 to 7.5 cm long, not bleeding, was sustained less than 30 minutes ago. is bleeding a small amount. Vital Signs: 00:09 BP 121 / 53; Pulse 94; Resp 16 S; Temp 98.1(O); Pulse Ox 99% on R/A; Weight 90.72 kg as6 (R); Height 5 ft. 4 in. (162.56 cm) (M); Pain 7/10; 01:45 BP 126 / 63; Pulse 98; Resp 17 S; Temp 98.6(O); Pulse Ox 100% on R/A; Pain 0/10; aa9 00:09 Body Mass Index 34.33 (90.72 kg, 162.56 cm) as6 ED Course: 00:06 Patient arrived in ED. bp1 00:12 Triage completed. as6 00:13 Arm band placed on. as6 00:28 Lynda Benson, RN is Primary Nurse. aa9 00:31 Patient has correct armband on for positive identification. Bed in low position. Call aa9 light in reach. Side rails up X2. Adult w/ patient. Warm blanket given. 00:37 Josh Villarreal MD is Attending Physician. seth 01:46 Assist provider with laceration repair on left hand that was between 7.6 to 12.5 cm aa9 using sutures. Set up tray. Performed by Josh Villarreal MD Patient tolerated well. Patient did not have IV access during this emergency room visit. Administered Medications: No medications were administered Medication: 01:47 VIS not applicable for this client. aa9 Outcome: 00:51 Discharge ordered by . seth 01:46 Discharged to home ambulatory, with family. aa9 01:46 Condition: stable 01:46 Discharge instructions given to patient, family, Instructed on discharge instructions, follow up and referral plans. medication usage, Demonstrated understanding of instructions, follow-up care, medications, Prescriptions given X 2. 01:47 Patient left the ED. aa9 Signatures: Josh Villarreal MD MD cha [place], Brittany bp1 Slawson, Ashby, RN RN as6 Lynda Benson, RN RN aa9
[2022-08-09 12:11] VITALS: BP 126/63; TEMP 98.6; O2SAT 100
== END 2022-08-09 01:47 | disposition home or self-care (01) ==
LOC: ER 00:03
PROC: 0JQK0ZZ Repair Left Hand Subcutaneous Tissue and Fascia, Open Approach (ICD-10-PCS; principal; 2022-08-09)
DX: S61.412A Laceration without foreign body of left hand, initial encounter (principal); W26.0XXA Contact with knife, initial encounter; Y93.G3 Activity, cooking and baking; Y92.010 Kitchen of single-family (private) house as the place of occurrence of the external cause; F17.210 Nicotine dependence, cigarettes, uncomplicated
CPT/HCPCS: 99283

== ENCOUNTER 2022-08-28 18:30 | Emergency (ER) | payer OTHER ==
--- OUTSIDE RECORDS SUMMARY | 2022-08-28 18:33 | XMS REPORT | Continuity of Care Document ---
:2000 Author Organization [facility] t Address [address] [place] [address] Care Team Providers Name Role Phone Asked, No Pcp Primary Care Physician Unavailable BON OCONNOR Attending Clinician Unavailable MAMI SOLIZ Attending Clinician Unavailable NGOZI TOMAS Attending Clinician Unavailable NGOZI TOMAS Admitting Clinician Unavailable Payers Payer Name Policy Type Policy Number Effective Date Expiration Date Edmundo [employer] [place] [id number] 2019 2024 MEDICAID 00:00:00 00:00:00 STAR[employer]PLUS Problems This patient has no known problems. Allergies, Adverse Reactions, Alerts This patient has no known allergies or adverse reactions. Social History Social Habit Start Date Stop Date Quantity Comments Source Sex Assigned At [birth year] [facility] 00:00:00 00:00:00 Smoking Status Start Date Stop Date Source Tobacco smoking consumption unknown [facility] Medications This patient has no known medications. Procedures This patient has no known procedures. Encounters Start End Encounter Admission Attending Care Care Encounter Source Date/Time Date/Time Type Type Clinicians Facility Department ID 2021-05-23 Outpatient ELVIN [facility] [id number] [place] 01:04:46 [facility] 2021-04-25 Outpatient HEYDI [facility] [id number] [place] 09:39:[address] [facility] 2018-04-06 2018-04-06 Emergency [facility] [id number] [address] [place] [address] 15:33:00 15:33:00 [facility] 2018-04-06 2018-04-06 Outpatient [facility] [id number] [address] [place] [address] 00:00:00 00:00:00 Health 2017-07-09 2017-07-13 [facility] [id number] [address] [place] 00:00:00 00:00:00 [facility] Results Test Description Test Time Test Comments Results Result Comments Source Urinalysis Complete 2017-04-09 11:03:00 Test Item Value Reference Range Interpretation Comme nts Color (test code = COLOR) Yellow Yellow,Straw,Pl yellow N Clarity (test code = CLAR) Clear Clear N Specific [place] (test code = SPGR) 1.008 1.001-1.035 N pH (test code = PH) 6.5 5.0-9.0 N Ketone (test code = KET) 50 mg/dL Negative A Glucose (test code = GLUCUR) Negative mg/dL Negative N Protein (test code = PROT) Negative mg/dL Negative N Bilirubin (test code = BILI) Negative mg/dL Negative N Occult Blood (test code = UDOB) Small Negative A Urobilinogen (test code = UROB) 0.2 mg/dL 0.2-1.0 N Nitrite (test code = NIT) Negative Negative N Leuk Esterase (test code = LEUK) Negative Negative N Micros Exam (test code = MEXAM) Indicated Epithelial Cells (test code = EPI) 3-5 /LPF 0-30 A WBC, Urine (test code = UWBC) 0-5 /HPF 0-5 N RBC, Urine (test code = URBC) 0-3 /HPF 0-5 A Bacteria (test code = BACT) Few /HPF [id number] 10:50:00 Test Item Value Reference Range Interpretation [...] Barbiturates (test Negative Negative N code = KJ) Benzodiazepine (test Negative Negative N code = [...]
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
[2022-08-28 19:49] VITALS: BP 138/71; TEMP 98.6; O2SAT 100
== END 2022-08-28 19:45 | disposition home or self-care (01) ==
LOC: ER 18:30
DX: Z48.02 Encounter for removal of sutures (principal)
CPT/HCPCS: 99281

== ENCOUNTER 2022-10-22 22:00 | Emergency (ER) | payer OTHER ==
--- OUTSIDE RECORDS SUMMARY | 2022-10-22 22:07 | XMS REPORT | Continuity of Care Document ---
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 AllenWhfsxmeANEALGISFP7388-17-64 09:47:00 Test Item Value Reference Range Interpretation Comments RBC (test code = RBC) 5.27 4.70-6.10 [facility] AllenCcxsyrxPUZXPUEFOI8422-35-49 09:47:00 Test Item Value Reference Range Interpretation Comments Segs (test code = Segs) 80.5 45.0-75.0 [facility] AllenRwskiyaNWKFVOODEG6751-14-57 09:47:00 Test Item Value Reference Range Interpretation Comments Eosinophils (test code = 0.1 See_Comment [A utomated message] The Eosinophils) system which ge nerated this result tra nsmitted reference range : <=4.0. The reference r becki was not used to int erpret this result as normal/abnormal . [facility] AllenElcfksaSRQPQXVHKB5511-01-40 09:47:00 Test Item Value Reference Range Interpretation Comments Basophils (test code = 0.5 See_Comment [Aut omated message] The Basophils) system which ge nerated this result tra nsmitted reference range : <=1.0. The reference r becki was not used to int erpret this result as normal/abnormal . [facility] AllenQdxniszWPWQQJGNLE9897-97-01 09:47:00 Test Item Value Reference Range Interpretation Comments Lymphocytes (test code = Lymphocytes) 11.8 20.0-40.0 [facility]2018-08-12 09:47:00 Test Item Value Reference Range Interpretation Comments Creatinine Lvl (test code = Creatinine 0.76 0.50-1.40 Lvl) [facility]2018-08-12 09:47:00 Test Item Value Reference Range Interpretation Comments Sodium Lvl (test code = Sodium Lvl) 144 135-145 [facility]2018-08-12 09:47:00 Test Item Value Reference Range Interpretation Comments BUN (test code = BUN) 10 7-22 [facility]2018-08-12 09:47:00 Test Item Value Reference Range Interpretation Comments Glucose Lvl (test code = Glucose Lvl) 105 70-99 [facility] AllenNozvzahXQINMPUAIP8181-99-67 09:47:00 Test Item Value Reference Range Interpretation Comments MPV (test code = MPV) 8.4 7.4-10.4 [facility] AllenJzyntppQQBEOQQXYF2009-50-09 09:47:00 Test Item Value Reference Range Interpretation Comments MCH (test code = MCH) 31.0 pg 27.0-31.0 [facility] AllenWryzbjiEOLOJRYBPW3644-97-37 09:47:00 Test Item Value Reference Range Interpretation Comments Hct (test code = Hct) 47.8 42.0-54.0 [facility] AllenPfovbkzTIFKENMGKG7194-66-26 09:47:00 Test Item Value Reference Range Interpretation Comments MCV (test code = MCV) 90.7 80.0-94.0 [facility] AllenBdalwqrQXSNETQNHY6086-19-61 09:47:00 Test Item Value Reference Range Interpretation Comments Monocytes (test code = Monocytes) 7.1 2.0-12.0 [facility] AllenNgfjuxoUNMJHLXVWY8028-96-41 09:47:00 Test Item Value Reference Range Interpretation Comments MCHC (test code = MCHC) 34.2 32.0-36.0 [facility] AllenZrcgisyHPPECRJELI1485-04-14 09:47:00 Test Item Value Reference Range Interpretation Comments Platelet (test code = Platelet) 96 133-450 [facility] AllenInecvudZVZSVPPGZX8834-67-85 09:47:00 Test Item Value Reference Range Interpretation Comments RDW (test code = RDW) 13.2 11.5-14.5 [facility] AllenOjhtmtjSLRHACMXDX6600-09-19 09:47:00 Test Item Value Reference Range Interpretation Comments WBC (test code = WBC) 12.9 3.7-10.4 [facility] AllenZokevdvUMIEKGOYQO9488-87-31 09:47:00 Test Item Value Reference Range Interpretation Comments Hgb (test code = Hgb) 16.4 14.0-18.0 [place] 105208-08-12 09:47:00 Test Item Value Reference Range Interpretation Comments RBC (test code = RBC) 5.27 4.70-6.10 [facility] AllenXfydlpvHJSSITXIHJ6089-33-30 09:47:00 Test Item Value Reference Range Interpretation Comments Segs (test code = Segs) 80.5 45.0-75.0 [facility] AllenXmqnswxGQJQAOHUDP4655-44-56 09:47:00 Test Item Value Reference Range Interpretation Comments Eosinophils (test code = 0.1 See_Comment [A utomated message] The Eosinophils) system which ge nerated this result tra nsmitted reference range : <=4.0. The reference r becki was not used to int erpret this result as normal/abnormal . [facility] AllenOuzksuzZVFLTXPMTT9987-97-72 09:47:00 Test Item Value Reference Range Interpretation Comments Basophils (test code = 0.5 See_Comment [Aut omated message] The Basophils) system which ge nerated this result tra nsmitted reference range : <=1.0. The reference r becki was not used to int erpret this result as normal/abnormal . [facility] AllenLowsgpuVTUKMXKXAO5840-52-91 09:47:00 Test Item Value Reference Range Interpretation Comments Lymphocytes (test code = Lymphocytes) 11.8 20.0-40.0 [facility] AllenFnruuxuUKNPFJVPLZ2564-65-27 09:47:00 Test Item Value Reference Range Interpretation Comments Basophils # (test code 0.1 See_Comment [Aut omated message] The = Basophils #) system which generated this result tra nsmitted reference range : <=0.2. The reference r becki was not used to int erpret this result as normal/abnormal . [facility] AllenTfcxbuxGQAKDQPBEY3565-46-01 09:47:00 Test Item Value Reference Range Interpretation Comments Monocytes (test code = Monocytes) 7.1 2.0-12.0 [facility] AllenVzaurqlXIMVNQNYZS3229-93-67 09:47:00 Test Item Value Reference Range Interpretation Comments Basophils # (test code 0.1 See_Comment [Aut omated message] The = Basophils #) system which generated this result tra nsmitted reference range : <=0.2. The reference r becki was not used to int erpret this result as normal/abnormal . [facility] AllenNlshhsfJELDNXVRTN3860-61-97 09:47:00 Test Item Value Reference Range Interpretation Comments Lymphocytes # (test code = Lymphocytes 1.5 1.0-5.5 #) [facility] AllenIimdxtfYMGLTEJTKH8959-31-48 09:47:00 Test Item Value Reference Range Interpretation Comments Monocytes # (test code 0.9 See_Comment [Aut omated message] The = Monocytes #) system which generated this result tra nsmitted reference range : <=0.8. The reference r becki was not used to int erpret this result as normal/abnormal . [facility] AllenRnnmlkiYOWLSWODQE8766-91-55 09:47:00 Test Item Value Reference Range Interpretation Comments Neutrophils # (test code = Neutrophils 10.4 1.5-8.1 #) [facility] AND [id number] 09:47:00 Test Item Value Reference Range Interpretation Comments UA Color (test code = UA Color) Amarilys [facility] AND [id number] 09:47:00 Test Item Value Reference Range Interpretation Comments UA RBC (test code = 6 See_Comment [Automa ria message] The UA RBC) system which ge nerated this result transmit ria reference range : <=2. The reference range was not used to interpr et this result as bennett l/abnormal. [facility] AND [id number] 09:47:00 Test Item Value Reference Range Interpretation Comments UA Mucus (test code = UA Mucus) Many /LPF [facility] AND [id number] 09:47:00 Test Item Value Reference Range Interpretation Comments UA Protein (test code = UA Protein) 100 mg/dL [facility] AND [id number] 09:47:00 Test Item Value Reference Range Interpretation Comments UA Spec Grav (test code = UA Spec 1.028 1 Grav) [facility]DtsvcwwAXXMJSYZQT2779-99-01 09:47:00 Test Item Value Reference Range Interpretation Comments Lymphocytes # (test code = Lymphocytes 1.5 1.0-5.5 #) [facility] AND [id number] 09:47:00 Test Item Value Reference Range Interpretation Comments UA pH (test code = UA pH) 5.0 1 5.0-8.0 [facility] AND [id number] 09:47:00 Test Item Value Reference Range Interpretation Comments UA Turbidity (test code Slight *ABN*(06/20/18 = UA Turbidity) 4:47 AM) [facility] AND [id number] 09:47:00 Test Item Value Reference Range Interpretation Comments UA Bili (test code = Negative *NA*(06/20/18 UA Bili) 4:47 AM) [facility] AND [id number] 09:47:00 Test Item Value Reference Range Interpretation Comments UA Blood (test code = Negative (06/20/18 4:47 UA Blood) AM) [facility] AND [id number] 09:47:00 Test Item Value Reference Range Interpretation Comments UA Ketones (test code = UA Ketones) 20 mg/dL [facility] AND [id number] 09:47:00 Test Item Value Reference Range Interpretation Comments UA Glucose (test code = UA Negative mg/dL Glucose) [facility] AND [id number] 09:47:00 Test Item Value Reference Range Interpretation Comments UA Urobilinogen (test code = UA 4.0 0.1-1.0 Urobilinogen) [facility] AND [id number] 09:47:00 Test Item Value Reference Range Interpretation Comments UA Nitrite (test code Negative (06/20/18 4:47 = UA Nitrite) AM) [facility] AND [id number] 09:47:00 Test Item Value Reference Range Interpretation Comments UA WBC (test code = 20 See_Comment [Automa ria message] The UA WBC) system which ge nerated this result transmit ria reference range : <=5. The reference range was not used to interpr et this result as bennett l/abnormal. [facility] AND [id number] 09:47:00 Test Item Value Reference Range Interpretation Comments UA Leuk Est (test Negative (06/20/18 4:47 code = UA Leuk Est) AM) [facility]EryphwaNDEFYWQCXK6537-89-09 09:47:00 Test Item Value Reference Range Interpretation Comments Monocytes # (test code 0.9 See_Comment [Aut omated message] The = Monocytes #) system which generated this result tra nsmitted reference range : <=0.8. The reference r becki was not used to int erpret this result as normal/abnormal . [facility] AND [id number] 09:47:00 Test Item Value Reference Range Interpretation Comments UA Sq Epi (test code = UA Sq Occasional /LPF Epi) [facility]NphfvqiQUIPQQNKNR2981-45-58 09:47:00 Test Item Value Reference Range Interpretation Comments Neutrophils # (test code = Neutrophils 10.4 1.5-8.1 #) [facility] [id number] 09:47:00 Test Item Value Reference Range Interpretation Comments Total CK (test code = Total CK) 98 12-191 [facility] [id number] 09:47:00 Test Item Value Reference Range Interpretation Comments Lipase Lvl (test code = Lipase Lvl) 85 73-393 [facility] [id number] 09:47:00 Test Item Value Reference Range Interpretation Comments Globulin (test code = Globulin) 3.9 2.7-4.2 [facility] [id number] 09:47:00 Test Item Value Reference Range Interpretation Comments A/G Ratio (test code = A/G Ratio) 1.1 1 0.7-1.6 [facility] [id number] 09:47:00 Test Item Value Reference Range Interpretation Comments AGAP (test code = AGAP) 12.5 10.0-20.0 [facility] [id number] 09:47:00 Test Item Value Reference Range Interpretation Comments B/C Ratio (test code = B/C Ratio) 13 1 6-25 [facility] [id number] 09:47:00 Test Item Value Reference Range Interpretation Comments AST (test code = AST) 13 See_Comment [Auto mated message] The system which ge nerated this result transmit ria reference range : <=37. The reference range was not used to interpr et this result as bennett l/abnormal. [facility] [id number] 09:47:00 Test Item Value Reference Range Interpretation Comments Alk Phos (test code = Alk Phos) 72 39-[facility] [id number] 09:47:00 Test Item Value Reference Range Interpretation Comments UA Color (test code = UA Color) Amarilys [facility] [id number] 09:47:00 Test Item Value Reference Range Interpretation Comments ALT (test code = ALT) 17 See_Comment [Auto mated message] The system which ge nerated this result transmit ria reference range : <=65. The reference range was not used to interpr et this result as bennett l/abnormal. [facility] [id number] 09:47:00 Test Item Value Reference Range Interpretation Comments eGFR (test code = eGFR) 131 [facility]2018-08-12 09:47:00 Test Item Value Reference Range Interpretation Comments Bili Total (test code = Bili Total) 0.4 0.2-1.3 [facility]2018-08-12 09:47:00 Test Item Value Reference Range Interpretation Comments Albumin Lvl (test code = Albumin Lvl) 4.2 3.5-5.0 [facility]2018-08-12 09:47:00 Test Item Value Reference Range Interpretation Comments Calcium Lvl (test code = Calcium Lvl) 8.7 8.5-10.5 [facility]2018-08-12 09:47:00 Test Item Value Reference Range Interpretation Comments Total Protein (test code = Total 8.1 6.4-8.4 Protein) [facility]2018-08-12 09:47:00 Test Item Value Reference Range Interpretation Comments Chloride Lvl (test code = Chloride Lvl) 108 95-109 [facility]2018-08-12 09:47:00 Test Item Value Reference Range Interpretation Comments CO2 (test code = CO2) 27 24-32 [facility]2018-08-12 09:47:00 Test Item Value Reference Range Interpretation Comments Potassium Lvl (test code = Potassium 3.5 3.5-5.1 Lvl) [facility] AND [id number] 09:47:00 Test Item Value Reference Range Interpretation Comments UA RBC (test code = 6 See_Comment [Automa ria message] The UA RBC) system which ge nerated this result transmit ria reference range : <=2. The reference range was not used to interpr et this result as bennett l/abnormal. [facility] AND [id number] 09:47:00 Test Item Value Reference Range Interpretation Comments UA Mucus (test code = UA Mucus) Many /LPF [facility] AND [id number] 09:47:00 Test Item Value Reference Range Interpretation Comments UA Protein (test code = UA Protein) 100 mg/dL [facility] AND [id number] 09:47:00 Test Item Value Reference Range Interpretation Comments UA Spec Grav (test code = UA Spec 1.028 1 Grav) [facility] AND [id number] 09:47:00 Test Item Value Reference Range Interpretation Comments UA pH (test code = UA pH) 5.0 1 5.0-8.0 [facility] AND [id number] 09:47:00 Test Item Value Reference Range Interpretation Comments UA Turbidity (test code Slight *ABN*(06/20/18 = UA Turbidity) 4:47 AM) [facility] AND [id number] 09:47:00 Test Item Value Reference Range Interpretation Comments UA Bili (test code = Negative *NA*(06/20/18 UA Bili) 4:47 AM) [facility] AND [id number] 09:47:00 Test Item Value Reference Range Interpretation Comments UA Blood (test code = Negative (06/20/18 4:47 UA Blood) AM) [facility] AND [id number] 09:47:00 Test Item Value Reference Range Interpretation Comments UA Ketones (test code = UA Ketones) 20 mg/dL [facility] AND [id number] 09:47:00 Test Item Value Reference Range Interpretation Comments UA Glucose (test code = UA Negative mg/dL Glucose) [facility] AND [id number] 09:47:00 Test Item Value Reference Range Interpretation Comments UA Urobilinogen (test code = UA 4.0 0.1-1.0 Urobilinogen) [facility] AND [id number] 09:47:00 Test Item Value Reference Range Interpretation Comments UA Nitrite (test code Negative (06/20/18 4:47 = UA Nitrite) AM) [facility] AND [id number] 09:47:00 Test Item Value Reference Range Interpretation Comments UA WBC (test code = 20 See_Comment [Automa ria message] The UA WBC) system which ge nerated this result transmit ria reference range : <=5. The reference range was not used to interpr et this result as bennett l/abnormal. [facility] AND [id number] 09:47:00 Test Item Value Reference Range Interpretation Comments UA Leuk Est (test Negative (06/20/18 4:47 code = UA Leuk Est) AM) [facility] AND [id number] 09:47:00 Test Item Value Reference Range Interpretation Comments UA Sq Epi (test code = UA Sq Occasional /LPF Epi) [facility] [id number] 09:47:00 Test Item Value Reference Range Interpretation Comments Total CK (test code = Total CK) 98 12-191 [facility]2018-08-12 09:47:00 Test Item Value Reference Range Interpretation Comments Lipase Lvl (test code = Lipase Lvl) 85 73-393 [facility]2018-08-12 09:47:00 Test Item Value Reference Range Interpretation Comments Globulin (test code = Globulin) 3.9 2.7-4.2 [facility]2018-08-12 09:47:00 Test Item Value Reference Range Interpretation Comments A/G Ratio (test code = A/G Ratio) 1.1 1 0.7-1.6 [facility]2018-08-12 09:47:00 Test Item Value Reference Range Interpretation Comments AGAP (test code = AGAP) 12.5 10.0-20.0 [facility]2018-08-12 09:47:00 Test Item Value Reference Range Interpretation Comments B/C Ratio (test code = B/C Ratio) 13 1 6-25 [facility]2018-08-12 09:47:00 Test Item Value Reference Range Interpretation Comments AST (test code = AST) 13 See_Comment [Auto mated message] The system which ge nerated this result transmit ria reference range : <=37. The reference range was not used to interpr et this result as bennett l/abnormal. [facility]2018-08-12 09:47:00 Test Item Value Reference Range Interpretation Comments Alk Phos (test code = Alk Phos) 72 39-136 [facility]2018-08-12 09:47:00 Test Item Value Reference Range Interpretation Comments ALT (test code = ALT) 17 See_Comment [Auto mated message] The system which ge nerated this result transmit ria reference range : <=65. The reference range was not used to interpr et this result as bennett l/abnormal. [facility]2018-08-12 09:47:00 Test Item Value Reference Range Interpretation Comments eGFR (test code = eGFR) 131 [facility]2018-08-12 09:47:00 Test Item Value Reference Range Interpretation Comments Bili Total (test code = Bili Total) 0.4 0.2-1.3 [facility]2018-08-12 09:47:00 Test Item Value Reference Range Interpretation Comments Albumin Lvl (test code = Albumin Lvl) 4.2 3.5-5.0 [facility]2018-08-12 09:47:00 Test Item Value Reference Range Interpretation Comments Calcium Lvl (test code = Calcium Lvl) 8.7 8.5-10.5 [facility]2018-08-12 09:47:00 Test Item Value Reference Range Interpretation Comments Total Protein (test code = Total 8.1 6.4-8.4 Protein) [facility]2018-08-12 09:47:00 Test Item Value Reference Range Interpretation Comments Chloride Lvl (test code = Chloride Lvl) 108 95-109 [facility]2018-08-12 09:47:00 Test Item Value Reference Range Interpretation Comments CO2 (test code = CO2) 27 24-32 [facility]2018-08-12 09:47:00 Test Item Value Reference Range Interpretation Comments Potassium Lvl (test code = Potassium 3.5 3.5-5.1 Lvl) [facility]2018-08-12 09:47:00 Test Item Value Reference Range Interpretation Comments Creatinine Lvl (test code = Creatinine 0.76 0.50-1.40 Lvl) [facility]2018-08-12 09:47:00 Test Item Value Reference Range Interpretation Comments Sodium Lvl (test code = Sodium Lvl) 144 135-[facility] [id number] 11:03:00 Test Item Value Reference Range Interpretation Comments Color (test code = COLOR) Yellow Yellow,Straw,Pl N yellow Clarity (test code = Clear Clear N CLAR) Specific [place] (test 1.008 1.001-1.035 N code = SPGR) [...] Bacteria (test code = Few /HPF BACT) [id number] 10:50:00 Test Item Value Reference Range Interpretation [...] (test code = THC) POSITIVE Negative A [id number] 18:39:00 Test Item Value Reference Range Interpretation Comments MCHC (test code = MCHC) 33.4 32.0-36.0 [facility]OU[facility]GVS4861[facility] 18:39:00 Test Item Value Reference Range Interpretation Comments Hgb (test code = Hgb) 12.6 14.0-18.0 [facility] Hos[id number] 18:39:00 Test Item Value Reference Range Interpretation Comments Hct (test code = Hct) 37.7 42.0-54.0 [facility]hiwmrsDCALQDYQUT4975-55-18 18:39:00 Test Item Value Reference Range Interpretation Comments MCV (test code = MCV) 91.7 80.0-94.0 [facility] HospitalQcqdvalHOOHHNVTUL6091-37-54 18:39:00 Test Item Value Reference Range Interpretation Comments WBC (test code = WBC) 9.7 3.7-10.4 [id number] 18:39:00 Test Item Value Reference Range Interpretation Comments RBC (test code = RBC) 4.11 4.70-6.10 [place] 105205-06-13 18:39:00 Test Item Value Reference Range Interpretation Comments Segs-Bands # (test code = Segs-Bands #) 6.9 1.5-8.1 [facility]GiixsgtYWCELBEEAQ7224-73-44 18:39:00 Test Item Value Reference Range Interpretation Comments Lymphocytes # (test code = Lymphocytes 2.2 1.0-5.5 #) [facility]JpgbynqKIVCYUQKKQ7583-08-54 18:39:00 Test Item Value Reference Range Interpretation Comments Monocytes # (test code 0.5 See_Comment [Aut omated message] The = Monocytes #) system which generated this result tra nsmitted reference range : <=0.8. The reference r becki was not used to int erpret this result as normal/abnormal . [facility] AllenSxfhxrvPPXUQXZSJM4379-04-58 18:39:00 Test Item Value Reference Range Interpretation Comments Monocytes (test code = Monocytes) 4.7 2.0-12.0 [facility] AllenMcsvyyaAKESPEKMDL4965-68-25 18:39:00 Test Item Value Reference Range Interpretation Comments Eosinophils # (test code 0.1 See_Comment [A utomated message] The = Eosinophils #) system whic h generated this result tra nsmitted reference range : <=0.5. The reference r becki was not used to int erpret this result as normal/abnormal . [facility] AllenVszccetRCUDCVDMGK8781-51-86 18:39:00 Test Item Value Reference Range Interpretation Comments Basophils # (test code 0.1 See_Comment [Aut omated message] The = Basophils #) system which generated this result tra nsmitted reference range : <=0.2. The reference r becki was not used to int erpret this result as normal/abnormal . [facility] AllenKldripsQRFHXHVKEG1319-84-93 18:39:00 Test Item Value Reference Range Interpretation Comments Eosinophils (test code = 1.3 See_Comment [A utomated message] The Eosinophils) system which ge nerated this result tra nsmitted reference range : <=4.0. The reference r becki was not used to int erpret this result as normal/abnormal . [facility] AllenGtheprmEVGYSCXYBR0352-04-25 18:39:00 Test Item Value Reference Range Interpretation Comments Basophils (test code = 0.8 See_Comment [Aut omated message] The Basophils) system which ge nerated this result tra nsmitted reference range : <=1.0. The reference r becki was not used to int erpret this result as normal/abnormal . [facility] AllenSbynsieFPLQWUQWRI2268-78-71 18:39:00 Test Item Value Reference Range Interpretation Comments Segs (test code = Segs) 71.0 45.0-75.0 [facility] AllenMweobmiVJFKWZTENE6166-39-61 18:39:00 Test Item Value Reference Range Interpretation Comments Lymphocytes (test code = Lymphocytes) 22.2 20.0-40.0 [id number] 18:39:00 Test Item Value Reference Range Interpretation Comments Platelet (test code = Platelet) 241 133-450 [facility] All[id number] 18:39:00 Test Item Value Reference Range Interpretation Comments RDW (test code = RDW) 13.6 11.5-14.5 [facility] All[id number] 18:39:00 Test Item Value Reference Range Interpretation Comments MPV (test code = MPV) 8.6 7.4-10.4 [facility] All[id number] 18:39:00 Test Item Value Reference Range Interpretation Comments MCH (test code = MCH) 30.6 pg 27.0-31.0 [facility] AllenXwfjnqwIUMBWSQSJJ6068-21-09 18:39:00 Test Item Value Reference Range Interpretation Comments MCHC (test code = MCHC) 33.4 32.0-36.0 [facility] AllenFwtrzkkHGOFNGFYGF2290-13-74 18:39:00 Test Item Value Reference Range Interpretation Comments Hgb (test code = Hgb) 12.6 14.0-18.0 [facility] AllenCbclktfXNJITRYGGN0128-13-00 18:39:00 Test Item Value Reference Range Interpretation Comments Hct (test code = Hct) 37.7 42.0-54.0 [facility] All[id number] 18:39:00 Test Item Value Reference Range Interpretation Comments MCV (test code = MCV) 91.7 80.0-94.0 [facility] AllenGkkakvmZJJYDSHCYV2089-83-52 18:39:00 Test Item Value Reference Range Interpretation Comments WBC (test code = WBC) 9.7 3.7-10.4 [facility] AllenIapdwcbTMKENSSRLT5995-87-68 18:39:00 Test Item Value Reference Range Interpretation Comments RBC (test code = RBC) 4.11 4.70-6.10 [facility] AllenTybevkmFXCDVIPYWX0853-02-33 18:39:00 Test Item Value Reference Range Interpretation Comments Segs-Bands # (test code = Segs-Bands #) 6.9 1.5-8.1 [facility] All[id number] 18:39:00 Test Item Value Reference Range Interpretation Comments Lymphocytes # (test code = Lymphocytes 2.2 1.0-5.5 #) [facility] AllenZhiwxeoMAYRZXUPUQ4405-17-32 18:39:00 Test Item Value Reference Range Interpretation Comments Monocytes # (test code 0.5 See_Comment [Aut omated message] The = Monocytes #) system which generated this result tra nsmitted reference range : <=0.8. The reference r becki was not used to int erpret this result as normal/abnormal . [facility] AllenBqtovrtCFGSWUEXXA7539-27-97 18:39:00 Test Item Value Reference Range Interpretation Comments Monocytes (test code = Monocytes) 4.7 2.0-12.0 [facility] AllenBnncoohMZNJJQHQOL3873-67-69 18:39:00 Test Item Value Reference Range Interpretation Comments Eosinophils # (test code 0.1 See_Comment [A utomated message] The = Eosinophils #) system [facility] generated this result tra nsmitted reference range : <=0.5. The reference r becki was not used to int erpret this result as normal/abnormal . [facility] All[id number] 18:39:00 Test Item Value Reference Range Interpretation Comments Basophils # (test code 0.1 See_Comment [Aut omated message] The = Basophils #) system which generated this result tra nsmitted reference range : <=0.2. The reference r becki was not used to int erpret this result as normal/abnormal . [facility] AllenErurufqOFULVBHPAF3898-57-00 18:39:00 Test Item Value Reference Range Interpretation Comments Eosinophils (test code = 1.3 See_Comment [A utomated message] The Eosinophils) system which ge nerated this result tra nsmitted reference range : <=4.0. The reference r becki was not used to int erpret this result as normal/abnormal . [facility] AllenDpvcwdaHNKRZOGCVC7844-89-46 18:39:00 Test Item Value Reference Range Interpretation Comments Basophils (test code = 0.8 See_Comment [Aut omated message] The Basophils) system which ge nerated this result tra nsmitted reference range : <=1.0. The reference r becki was not used to int erpret this result as normal/abnormal . [facility] All[id number] 18:39:00 Test Item Value Reference Range Interpretation Comments Segs (test code = Segs) 71.0 45.0-75.0 [facility] AllenYkcnycuKLZCSUEPMG2341-98-74 18:39:00 Test Item Value Reference Range Interpretation Comments Lymphocytes (test code = Lymphocytes) 22.2 20.0-40.0 [facility] AllenCrnzyvbJPYJIHYXSN2255-11-94 18:39:00 Test Item Value Reference Range Interpretation Comments Platelet (test code = Platelet) 241 133-450 [facility] All[id number] 18:39:00 Test Item Value Reference Range Interpretation Comments RDW (test code = RDW) 13.6 11.5-14.5 [facility] AllenEesjicaMEVPDBUNDB8729-37-64 18:39:00 Test Item Value Reference Range Interpretation Comments MPV (test code = MPV) 8.6 7.4-10.4 [facility] AllenRusgipgQTDATFDXVQ2569-02-11 18:39:00 Test Item Value Reference Range Interpretation Comments MCH (test code = MCH) 30.6 pg 27.0-31.0 [facility] AND [id number] 15:25:00 Test Item Value Reference Range Interpretation Comments UA Mucus (test code = UA Mucus) Few /LPF [facility] AND [id number] 15:25:00 Test Item Value Reference Range Interpretation Comments UA Urobilinogen (test code = UA <=1.0 mg/dL 0.1-1.0 Urobilinogen) [facility] AND [id number] 15:25:00 Test Item Value Reference Range Interpretation Comments UA Color (test code = Yellow *NA*(04/21/15 UA Color) 10:25 AM) [facility] AND [id number] 15:25:00 Test Item Value Reference Range Interpretation Comments UA Spec Grav (test code = UA Spec Grav) 1.012 [facility] AND [id number] 15:25:00 Test Item Value Reference Range Interpretation Comments UA Turbidity (test code = Clear (04/21/15 10:25 UA Turbidity) AM) [facility] AND [id number] 15:25:00 Test Item Value Reference Range Interpretation Comments UA Ketones (test code = UA Negative mg/dL Ketones) [facility] AND [id number] 15:25:00 Test Item Value Reference Range Interpretation Comments UA pH (test code = UA pH) 6.0 5.0-8.0 [facility] AND [id number] 15:25:00 Test Item Value Reference Range Interpretation Comments UA Glucose (test code = UA Negative mg/dL Glucose) [facility] AND [id number] 15:25:00 Test Item Value Reference Range Interpretation Comments UA Protein (test code = UA Negative mg/dL Protein) [facility] AND [id number] 15:25:00 Test Item Value Reference Range Interpretation Comments UA Leuk Est (test Negative (04/21/15 10:25 code = UA Leuk Est) AM) [facility] AND [id number] 15:25:00 Test Item Value Reference Range Interpretation Comments UA Nitrite (test code Negative (04/21/15 10:25 = UA Nitrite) AM) [facility] AND [id number] 15:25:00 Test Item Value Reference Range Interpretation Comments UA Blood (test code = Negative (04/21/15 10:25 UA Blood) AM) [facility] AND [id number] 15:25:00 Test Item Value Reference Range Interpretation Comments UA Bili (test code = Negative *NA*(04/21/15 UA Bili) 10:25 AM) [facility] AND [id number] 15:25:00 Test Item Value Reference Range Interpretation Comments UA WBC (test code = no gt See_Comment [Automa ria message] The UA WBC) system which ge nerated this result transmit ria reference range : <=5. The reference range was not used to interpr et this result as bennett l/abnormal. [facility] AND [id number] 15:25:00 Test Item Value Reference Range Interpretation Comments UA RBC (test code = 1 See_Comment [Automa ria message] The UA RBC) system which ge nerated this result transmit ria reference range : <=2. The reference range was not used to interpr et this result as bennett l/abnormal. [facility] AND [id number] 15:25:00 Test Item Value Reference Range Interpretation Comments UA Sq Epi (test code = UA Sq Occasional /LPF Epi) [facility] AND [id number] 15:25:00 Test Item Value Reference Range Interpretation Comments UA Mucus (test code = UA Mucus) Few /LPF [facility] AND [id number] 15:25:00 Test Item Value Reference Range Interpretation Comments UA Urobilinogen (test code = UA <=1.0 mg/dL 0.1-1.0 Urobilinogen) [facility] AND [id number] 15:25:00 Test Item Value Reference Range Interpretation Comments UA Color (test code = Yellow *NA*(04/21/15 UA Color) 10:25 AM) [facility] AND [id number] 15:25:00 Test Item Value Reference Range Interpretation Comments UA Spec Grav (test code = UA Spec Grav) 1.012 [facility] AND [id number] 15:25:00 Test Item Value Reference Range Interpretation Comments UA Turbidity (test code = Clear (04/21/15 10:25 UA Turbidity) AM) [facility] AND [id number] 15:25:00 Test Item Value Reference Range Interpretation Comments UA Ketones (test code = UA Negative mg/dL Ketones) [facility] AND [id number] 15:25:00 Test Item Value Reference Range Interpretation Comments UA pH (test code = UA pH) 6.0 5.0-8.0 [facility] AND [id number] 15:25:00 Test Item Value Reference Range Interpretation Comments UA Glucose (test code = UA Negative mg/dL Glucose) [facility] AND [id number] 15:25:00 Test Item Value Reference Range Interpretation Comments UA Protein (test code = UA Negative mg/dL Protein) [facility] AND [id number] 15:25:00 Test Item Value Reference Range Interpretation Comments UA Leuk Est (test Negative (04/21/15 10:25 code = UA Leuk Est) AM) [facility] AND [id number] 15:25:00 Test Item Value Reference Range Interpretation Comments UA Nitrite (test code Negative (04/21/15 10:25 = UA Nitrite) AM) [facility] AND [id number] 15:25:00 Test Item Value Reference Range Interpretation Comments UA Blood (test code = Negative (04/21/15 10:25 UA Blood) AM) [facility] AND [id number] 15:25:00 Test Item Value Reference Range Interpretation Comments UA Bili (test code = Negative *NA*(04/21/15 UA Bili) 10:25 AM) [facility] AND [id number] 15:25:00 Test Item Value Reference Range Interpretation Comments UA WBC (test code = no gt See_Comment [Automa ria message] The UA WBC) system which ge nerated this result transmit ria reference range : <=5. The reference range was not used to interpr et this result as bennett l/abnormal. [facility] AND [id number] 15:25:00 Test Item Value Reference Range Interpretation Comments UA RBC (test code = 1 See_Comment [Automa ria message] The UA RBC) system which ge nerated this result transmit ria reference range : <=2. The reference range was not used to interpr et this result as bennett l/abnormal. [facility] AND [id number] 15:25:00 Test Item Value Reference Range Interpretation Comments UA Sq Epi (test code = UA Sq Occasional /LPF Epi) [facility] [id number] 10:03:00 Test Item Value Reference Range Interpretation Comments eGFR (test code = eGFR) [facility] [id number] 10:03:00 Test Item Value Reference Range Interpretation Comments CO2 (test code = CO2) 23 24-[facility] [id number] 10:03:00 Test Item Value Reference Range Interpretation Comments Potassium Lvl (test code = Potassium 4.5 3.5-5.1 Lvl) [facility]2015-06-12 10:03:00 Test Item Value Reference Range Interpretation Comments Creatinine Lvl (test code = Creatinine 0.8 0.5-1.4 Lvl) [facility]2015-06-12 10:03:00 Test Item Value Reference Range Interpretation Comments Chloride Lvl (test code = Chloride Lvl) 104 95-109 [facility]2015-06-12 10:03:00 Test Item Value Reference Range Interpretation Comments AGAP (test code = AGAP) 12.5 10.0-20.0 [facility]2015-06-12 10:03:00 Test Item Value Reference Range Interpretation Comments Calcium Lvl (test code = Calcium Lvl) 8.3 8.5-10.5 [facility]2015-06-12 10:03:00 Test Item Value Reference Range Interpretation Comments Sodium Lvl (test code = Sodium Lvl) 135 135-145 [facility]2015-06-12 10:03:00 Test Item Value Reference Range Interpretation Comments Glucose Lvl (test code = Glucose Lvl) 119 70-99 [facility]2015-06-12 10:03:00 Test Item Value Reference Range Interpretation Comments BUN (test code = BUN) 17 7-22 [facility]2015-06-12 10:03:00 Test Item Value Reference Range Interpretation Comments U Amph Scr (test code Negative *NA*(04/20/15 = U Amph Scr) 5:03 AM) [facility]2015-06-12 10:03:00 Test Item Value Reference Range Interpretation Comments U Cocaine Scr (test Negative *NA*(04/20/15 code = U Cocaine Scr) 5:03 AM) [facility]2015-06-12 10:03:00 Test Item Value Reference Range Interpretation Comments U Benzodia Scr (test Positive *ABN*(04/20/15 code = U Benzodia Scr) 5:03 AM) [facility]2015-06-12 10:03:00 Test Item Value Reference Range Interpretation Comments U Ivet Scr (test code Negative *NA*(04/20/15 = U Ivet Scr) 5:03 AM) [facility]2015-06-12 10:03:00 Test Item Value Reference Range Interpretation Comments U Cannab Scr (test Positive *ABN*(04/20/15 code = U Cannab Scr) 5:03 AM[facility] [id number] 10:03:00 Test Item Value Reference Range Interpretation Comments UDS Note (test code = See Note 6(04/20/15 5:03 UDS Note) AM[facility] [id number] 10:03:00 Test Item Value Reference Range Interpretation Comments U Phencyc Scr (test Negative *NA*(04/20/15 code = U Phencyc Scr) 5:03 AM) [facility] [id number] 10:03:00 Test Item Value Reference Range Interpretation Comments U Opiate Scr (test Positive *ABN*(04/20/15 code = U Opiate Scr) 5:03 AM) [id number] 10:03:00 Test Item Value Reference Range Interpretation Comments PTT (test code = PTT) 24.2 s 22.9-35.8 [facility] [id number] 10:03:00 Test Item Value Reference Range Interpretation Comments Monocytes # (test code 1.0 See_Comment [Aut omated message] The = Monocytes #) system which generated this result tra nsmitted reference range : <=0.8. The reference r becki was not used to int erpret this result as normal/abnormal . [facility] AllenBmelskoCAAHJSUCJL9823-10-79 10:03:00 Test Item Value Reference Range Interpretation Comments Basophils # (test code 0.1 See_Comment [Aut omated message] The = Basophils #) system which generated this result tra nsmitted reference range : <=0.2. The reference r becki was not used to int erpret this result as normal/abnormal . [facility] [id number] 10:03:00 Test Item Value Reference Range Interpretation Comments Lymphocytes # (test code = Lymphocytes 2.7 1.0-5.5 #) [facility] [id number] 10:03:00 Test Item Value Reference Range Interpretation Comments Segs-Bands # (test code = Segs-Bands #) 12.6 1.5-8.1 [facility] [id number] 10:03:00 Test Item Value Reference Range Interpretation Comments Basophils (test code = 0.4 See_Comment [Aut omated message] The Basophils) system which ge nerated this result tra nsmitted reference range : <=1.0. The reference r becki was not used to int erpret this result as normal/abnormal . [facility] All[id number] 10:03:00 Test Item Value Reference Range Interpretation Comments Monocytes (test code = Monocytes) 6.1 2.0-12.0 [facility] [id number] 10:03:00 Test Item Value Reference Range Interpretation Comments Segs (test code = Segs) 76.9 45.0-75.0 [facility] All[id number] 10:03:00 Test Item Value Reference Range Interpretation Comments Eosinophils (test code = 0.1 See_Comment [A utomated message] The Eosinophils) system which ge nerated this result tra nsmitted reference range : <=4.0. The reference r becki was not used to int erpret this result as normal/abnormal . [facility] AllenUhnotpuQMKTULZTRZ5486-71-92 10:03:00 Test Item Value Reference Range Interpretation Comments Lymphocytes (test code = Lymphocytes) 16.5 20.0-40.0 [facility] AllenWurzfelVBCJCPKCZZ2906-93-57 10:03:00 Test Item Value Reference Range Interpretation Comments Platelet (test code = Platelet) 234 133-450 [facility] AllenFdqzfjrKCMXUKMAQN1898-03-45 10:03:00 Test Item Value Reference Range Interpretation Comments RDW (test code = RDW) 13.3 11.5-14.5 [facility] AllenEldzcwhDMCNLSTMNK9548-68-27 10:03:00 Test Item Value Reference Range Interpretation Comments MPV (test code = MPV) 7.9 7.4-10.4 [facility] [id number] 10:03:00 Test Item Value Reference Range Interpretation Comments MCHC (test code = MCHC) 34.2 32.0-36.0 [facility] [id number] 10:03:00 Test Item Value Reference Range Interpretation Comments RBC (test code = RBC) 4.48 4.70-6.10 [facility] AllenBpkzchrBVHGVSKHGO6159-01-88 10:03:00 Test Item Value Reference Range Interpretation Comments WBC (test code = WBC) 16.4 3.7-10.4 [facility] AllenQqeuehzWPWJJELEQU8341-77-86 10:03:00 Test Item Value Reference Range Interpretation Comments Hct (test code = Hct) 41.0 42.0-54.0 [facility] [id number] 10:03:00 Test Item Value Reference Range Interpretation Comments MCV (test code = MCV) 91.5 80.0-94.0 [facility] All[id number] 10:03:00 Test Item Value Reference Range Interpretation Comments Hgb (test code = Hgb) 14.0 14.0-18.0 [facility] [id number] 10:03:00 Test Item Value Reference Range Interpretation Comments MCH (test code = MCH) 31.3 pg 27.0-31.0 [facility] AND [id number] 10:03:00 Test Item Value Reference Range Interpretation Comments UA Spec Grav (test >=1.050 *ABN*(04/20/15 code = UA Spec Grav) 5:03 AM) [facility]2015-06-12 10:03:00 Test Item Value Reference Range Interpretation Comments UA Urobilinogen (test code = UA <=1.0 mg/dL 0.1-1.0 Urobilinogen) [facility] AND [id number] 10:03:00 Test Item Value Reference Range Interpretation Comments UA Mucus (test code = UA Mucus) Few /LPF [facility] AND [id number] 10:03:00 Test Item Value Reference Range Interpretation Comments UA Sq Epi (test code = UA Sq Epi) Few /LPF [facility] AND [id number] 10:03:00 Test Item Value Reference Range Interpretation Comments UA RBC (test code = 8 See_Comment [Automa ria message] The UA RBC) system which ge nerated this result transmit ria reference range : <=2. The reference range was not used to interpr et this result as bennett l/abnormal. [facility]2015-06-12 10:03:00 Test Item Value Reference Range Interpretation Comments UA Nitrite (test code Negative (04/20/15 5:03 = UA Nitrite) AM) [facility]2015-06-12 10:03:00 Test Item Value Reference Range Interpretation Comments UA Blood (test code = Trace *ABN*(04/20/15 UA Blood) 5:03 AM) [facility] AND [id number] 10:03:00 Test Item Value Reference Range Interpretation Comments UA Leuk Est (test Negative (04/20/15 5:03 code = UA Leuk Est) AM) [facility] AND [id number] 10:03:00 Test Item Value Reference Range Interpretation Comments UA Glucose (test code = UA Negative mg/dL Glucose) [facility] AND [id number] 10:03:00 Test Item Value Reference Range Interpretation Comments UA Ketones (test code = UA Negative mg/dL Ketones) [facility] AND [id number] 10:03:00 Test Item Value Reference Range Interpretation Comments UA Bili (test code = Negative *NA*(04/20/15 UA Bili) 5:03 AM) [facility] AND [id number] 10:03:00 Test Item Value Reference Range Interpretation Comments UA Protein (test code = UA Protein) 30 mg/dL [facility] AND [id number] 10:03:00 Test Item Value Reference Range Interpretation Comments UA Color (test code = Yellow *NA*(04/20/15 UA Color) 5:03 AM) [facility] AND [id number] 10:03:00 Test Item Value Reference Range Interpretation Comments UA pH (test code = UA pH) 6.0 5.0-8.0 [facility] AND [id number] 10:03:00 Test Item Value Reference Range Interpretation Comments UA Turbidity (test code = Clear (04/20/15 5:03 UA Turbidity) AM) [facility] [id number] 10:03:00 Test Item Value Reference Range Interpretation Comments eGFR (test code = eGFR) 89 [facility]2015-06-12 10:03:00 Test Item Value Reference Range Interpretation Comments CO2 (test code = CO2) 23 24-32 [facility]2015-06-12 10:03:00 Test Item Value Reference Range Interpretation Comments Potassium Lvl (test code = Potassium 4.5 3.5-5.1 Lvl) [facility]2015-06-12 10:03:00 Test Item Value Reference Range Interpretation Comments Creatinine Lvl (test code = Creatinine 0.8 0.5-1.4 Lvl) [facility] [id number] 10:03:00 Test Item Value Reference Range Interpretation Comments Chloride Lvl (test code = Chloride Lvl) 104 95-109 [facility]2015-06-12 10:03:00 Test Item Value Reference Range Interpretation Comments AGAP (test code = AGAP) 12.5 10.0-20.0 [facility]2015-06-12 10:03:00 Test Item Value Reference Range Interpretation Comments Calcium Lvl (test code = Calcium Lvl) 8.3 8.5-10.5 [id number] 10:03:00 Test Item Value Reference Range Interpretation Comments Sodium Lvl (test code = Sodium Lvl) 135 135-145 [facility]2015-06-12 10:03:00 Test Item Value Reference Range Interpretation Comments Glucose Lvl (test code = Glucose Lvl) 119 70-99 [facility]2015-06-12 10:03:00 Test Item Value Reference Range Interpretation Comments BUN (test code = BUN) 17 7-[facility] [id number] 10:03:00 Test Item Value Reference Range Interpretation Comments U Amph Scr (test code Negative *NA*(04/20/15 = U Amph Scr) 5:03 AM) [facility] [id number] 10:03:00 Test Item Value Reference Range Interpretation Comments U Cocaine Scr (test Negative *NA*(04/20/15 code = U Cocaine Scr) 5:03 AM) [facility] [id number] 10:03:00 Test Item Value Reference Range Interpretation Comments U Benzodia Scr (test Positive *ABN*(04/20/15 code = U Benzodia Scr) 5:03 AM) [facility] [id number] 10:03:00 Test Item Value Reference Range Interpretation Comments U Ivet Scr (test code Negative *NA*(04/20/15 = U Ivet Scr) 5:03 AM) [facility] [id number] 10:03:00 Test Item Value Reference Range Interpretation Comments U Cannab Scr (test Positive *ABN*(04/20/15 code = U Cannab Scr) 5:03 AM) [facility] [id number] 10:03:00 Test Item Value Reference Range Interpretation Comments UDS Note (test code = See Note 6(04/20/15 5:03 UDS Note) AM[facility] [id number] 10:03:00 Test Item Value Reference Range Interpretation Comments U Phencyc Scr (test Negative *NA*(04/20/15 code = U Phencyc Scr) 5:03 AM) [facility] [id number] 10:03:00 Test Item Value Reference Range Interpretation Comments U Opiate Scr (test Positive *ABN*(04/20/15 code = U Opiate Scr) 5:03 AM) [facility]sgwolgNUKPNEAEXQ5961-55-27 10:03:00 Test Item Value Reference Range Interpretation Comments PTT (test code = PTT) 24.2 s 22.9-35.8 [facility] AllenZhmehesCUEPVYBDYR9196-14-56 10:03:00 Test Item Value Reference Range Interpretation Comments Monocytes # (test code 1.0 See_Comment [Aut omated message] The = Monocytes #) system which generated this result tra nsmitted reference range : <=0.8. The reference r becki was not used to int erpret this result as normal/abnormal . [facility]hfdxutXCODKUTDYG9304-[facility] 10:03:00 Test Item Value Reference Range Interpretation Comments Basophils # (test code 0.1 See_Comment [Aut omated message] The = Basophils #) system which generated this result tra nsmitted reference range : <=0.2. The reference r becki was not used to int erpret this result as normal/abnormal . [facility] AllenYyttugkEOWUOXTHIZ1614-79-62 10:03:00 Test Item Value Reference Range Interpretation Comments Lymphocytes # (test code = Lymphocytes 2.7 1.0-5.5 #) [facility] AllenPypacytOJKNPALLEJ5337-19-37 10:03:00 Test Item Value Reference Range Interpretation Comments Segs-Bands # (test code = Segs-Bands #) 12.6 1.5-8.1 [facility] AllenIvdzejeVMMSQVYELY9502-30-59 10:03:00 Test Item Value Reference Range Interpretation Comments Basophils (test code = 0.4 See_Comment [Aut omated message] The Basophils) system which ge nerated this result tra nsmitted reference range : <=1.0. The reference r becki was not used to int erpret this result as normal/abnormal . [facility] AllenZfcgalfAUHBPVDWLM7519-53-24 10:03:00 Test Item Value Reference Range Interpretation Comments Monocytes (test code = Monocytes) 6.1 2.0-12.0 [facility] AllenJxlpmjuMUYRTXFMEI4273-04-26 10:03:00 Test Item Value Reference Range Interpretation Comments Segs (test code = Segs) 76.9 45.0-75.0 [facility] AllenLdjotxwTFUSBFDMSU3451-65-16 10:03:00 Test Item Value Reference Range Interpretation Comments Eosinophils (test code = 0.1 See_Comment [A utomated message] The Eosinophils) system which ge nerated this result tra nsmitted reference range : <=4.0. The reference r becki was not used to int erpret this result as normal/abnormal . [facility] AllenYlfrsoaTVPTZWEWLH1479-48-03 10:03:00 Test Item Value Reference Range Interpretation Comments Lymphocytes (test code = Lymphocytes) 16.5 20.0-40.0 [facility] AllenLpxhqvzIIYFAEVRAU7591-62-03 10:03:00 Test Item Value Reference Range Interpretation Comments Platelet (test code = Platelet) 234 133-450 [facility] AllenAhcmkzoBKSMTWOCEL9336-81-79 10:03:00 Test Item Value Reference Range Interpretation Comments RDW (test code = RDW) 13.3 11.5-14.5 [facility] AllenCqdverlMBRWITTXEE6358-79-63 10:03:00 Test Item Value Reference Range Interpretation Comments MPV (test code = MPV) 7.9 7.4-10.4 [facility] AllenJdnhmbkQDQOFZXPAJ1742-15-85 10:03:00 Test Item Value Reference Range Interpretation Comments MCHC (test code = MCHC) 34.2 32.0-36.0 [facility] AllenNymtlyhDTCBEFCEUN3746-34-74 10:03:00 Test Item Value Reference Range Interpretation Comments RBC (test code = RBC) 4.48 4.70-6.10 [facility] AllenFsvxppxLPPWJPCDLK3285-06-10 10:03:00 Test Item Value Reference Range Interpretation Comments WBC (test code = WBC) 16.4 3.7-10.4 [facility] AllenVupdrhmEHKHRVLNEV5658-07-11 10:03:00 Test Item Value Reference Range Interpretation Comments Hct (test code = Hct) 41.0 42.0-54.0 [facility] AllenJrwexglPGFGLOJMGA9289-73-90 10:03:00 Test Item Value Reference Range Interpretation Comments MCV (test code = MCV) 91.5 80.0-94.0 [facility] AllenNfvtirvOBNPCDKBDP3704-77-72 10:03:00 Test Item Value Reference Range Interpretation Comments Hgb (test code = Hgb) 14.0 14.0-18.0 [facility] AllenLzfqzdiHCOPCUWAAU7585-71-55 10:03:00 Test Item Value Reference Range Interpretation Comments MCH (test code = MCH) 31.3 pg 27.0-31.0 [facility] AND [id number] 10:03:00 Test Item Value Reference Range Interpretation Comments UA Spec Grav (test >=1.050 *ABN*(04/20/15 code = UA Spec Grav) 5:03 AM) [facility] AND [id number] 10:03:00 Test Item Value Reference Range Interpretation Comments UA Urobilinogen (test code = UA <=1.0 mg/dL 0.1-1.0 Urobilinogen) [facility] AND [id number] 10:03:00 Test Item Value Reference Range Interpretation Comments UA Mucus (test code = UA Mucus) Few /LPF [facility] AND [id number] 10:03:00 Test Item Value Reference Range Interpretation Comments UA Sq Epi (test code = UA Sq Epi) Few /LPF [facility] AND [id number] 10:03:00 Test Item Value Reference Range Interpretation Comments UA RBC (test code = 8 See_Comment [Automa ria message] The UA RBC) system which ge nerated this result transmit ria reference range : <=2. The reference range was not used to interpr et this result as bennett l/abnormal. [facility] AND [id number] 10:03:00 Test Item Value Reference Range Interpretation Comments UA Nitrite (test code Negative (04/20/15 5:03 = UA Nitrite) AM) [facility] AND [id number] 10:03:00 Test Item Value Reference Range Interpretation Comments UA Blood (test code = Trace *ABN*(04/20/15 UA Blood) 5:03 AM) [facility] AND [id number] 10:03:00 Test Item Value Reference Range Interpretation Comments UA Leuk Est (test Negative (04/20/15 5:03 code = UA Leuk Est) AM) [facility] AND [id number] 10:03:00 Test Item Value Reference Range Interpretation Comments UA Glucose (test code = UA Negative mg/dL Glucose) [facility] AND [id number] 10:03:00 Test Item Value Reference Range Interpretation Comments UA Ketones (test code = UA Negative mg/dL Ketones) [facility] AND [id number] 10:03:00 Test Item Value Reference Range Interpretation Comments UA Bili (test code = Negative *NA*(04/20/15 UA Bili) 5:03 AM) [facility] AND [id number] 10:03:00 Test Item Value Reference Range Interpretation Comments UA Protein (test code = UA Protein) 30 mg/dL [facility] AND [id number] 10:03:00 Test Item Value Reference Range Interpretation Comments UA Color (test code = Yellow *NA*(04/20/15 UA Color) 5:03 AM) [facility] AND [id number] 10:03:00 Test Item Value Reference Range Interpretation Comments UA pH (test code = UA pH) 6.0 5.0-8.0 [facility] AND [id number] 10:03:00 Test Item Value Reference Range Interpretation Comments UA Turbidity (test code = Clear (04/20/15 5:03 UA Turbidity) AM) [facility] bookjam [id number] 02:51:00 Test Item Value Reference Range Interpretation Comments Antibody Scrn (test Negative (04/19/15 9:51 code = Antibody Scrn) PM) [facility] [id number] 02:51:00 Test Item Value Reference Range Interpretation Comments ABO/Rh (test code = ABO/Rh) B POS [facility] bookjam [id number] 02:51:00 Test Item Value Reference Range Interpretation Comments Antibody Scrn (test Negative (04/19/15 9:51 code = Antibody Scrn) PM) [facility] bookjam [id number] 02:51:00 Test Item Value Reference Range Interpretation Comments ABO/Rh (test code = ABO/Rh) [id number] 02:41:00 Test Item Value Reference Range Interpretation Comments Lactic Acid Lvl (test code = Lactic 1.3 0.5-2.2 Acid Lvl) [facility] CenterQebtzoqOGCVCRXEUUDT5733-85-98 02:41:00 Test Item Value Reference Range Interpretation Comments AGAP (test code = AGAP) 15.7 10.0-20.0 [facility] CenterDywxesaBWGDVZLMLEOT8168-99-64 02:41:00 Test Item Value Reference Range Interpretation Comments eGFR (test code = eGFR) 82 [facility] CenterLrtykvhLBLYFHDSFUSK8282-20-83 02:41:00 Test Item Value Reference Range Interpretation Comments Creatinine Lvl (test code = Creatinine 0.9 0.5-1.4 Lvl) [facility] CenterKswtwhxKGVYHKMVKJVD7047-52-71 02:41:00 Test Item Value Reference Range Interpretation Comments BUN (test code = BUN) 16 7-22 [facility] CenterMcbfuihQOKKXGLGEETI9328-16-56 02:41:00 Test Item Value Reference Range Interpretation Comments Glucose Lvl (test code = Glucose Lvl) 98 70-99 [facility] CenterImzlwfpJJTCINBSCZKQ1631-78-35 02:41:00 Test Item Value Reference Range Interpretation Comments Calcium Lvl (test code = Calcium Lvl) 8.9 8.5-10.5 [facility] CenterHyrxjwlRMOSFQYOAUOA4195-94-04 02:41:00 Test Item Value Reference Range Interpretation Comments CO2 (test code = CO2) 26 24-32 [facility] CenterHqdydfiUVEMRFSOHAYV9441-77-74 02:41:00 Test Item Value Reference Range Interpretation Comments Chloride Lvl (test code = Chloride Lvl) 101 95-109 [facility] CenterNhwakklSEUBSHQGEBBP0144-31-13 02:41:00 Test Item Value Reference Range Interpretation Comments Potassium Lvl (test code = Potassium 3.7 3.5-5.1 Lvl) [facility] CenterLeegtsgLAMETKAULOKG0542-98-02 02:41:00 Test Item Value Reference Range Interpretation Comments Sodium Lvl (test code = Sodium Lvl) 139 135-145 [facility]WocrvihNECTKYVFHB7482-36-56 02:41:00 Test Item Value Reference Range Interpretation Comments WBC (test code = WBC) 12.4 3.7-10.4 [facility] AllenFhmhyrjRSDKOSUJJG2241-04-10 02:41:00 Test Item Value Reference Range Interpretation Comments RBC (test code = RBC) 4.97 4.70-6.10 [facility] AllenIhanzjlKOBRVAVRWY2118-47-84 02:41:00 Test Item Value Reference Range Interpretation Comments Hgb (test code = Hgb) 14.2 14.0-18.0 [facility] AllenBomxigrCSYOERXECM1820-69-60 02:41:00 Test Item Value Reference Range Interpretation Comments Hct (test code = Hct) 45.0 42.0-54.0 [facility] AllenGduzsofXUYWMUMCKZ3774-34-01 02:41:00 Test Item Value Reference Range Interpretation Comments MCV (test code = MCV) 90.4 80.0-94.0 [facility] AllenJgngwbgNEMCPTEGBI2430-13-56 02:41:00 Test Item Value Reference Range Interpretation Comments MCH (test code = MCH) 28.6 pg 27.0-31.0 [facility] AllenGcxmcfuWKTALUFYZH2371-55-25 02:41:00 Test Item Value Reference Range Interpretation Comments MCHC (test code = MCHC) 31.7 32.0-36.0 [facility] AllenQfokjmlJVDPAMESVI7030-90-03 02:41:00 Test Item Value Reference Range Interpretation Comments RDW (test code = RDW) 12.6 11.5-14.5 [facility] AllenPtytufuQXBGIJCJGR5078-21-85 02:41:00 Test Item Value Reference Range Interpretation Comments Platelet (test code = Platelet) 259 133-450 [facility] AllenRhkmujuHLUFBPJDVY1469-46-25 02:41:00 Test Item Value Reference Range Interpretation Comments MPV (test code = MPV) 8.2 7.4-10.4 [facility] AllenFyyiixqEKCRZPLGVZ0625-42-13 02:41:00 Test Item Value Reference Range Interpretation Comments G-value (test code = G-value) 7.7 5.0-11.6 [facility] AllenBbvsaabOHQQNCIKBH6093-62-50 02:41:00 Test Item Value Reference Range Interpretation Comments Estimated % Lysis (test 10.9 See_Comment [Au tomated message] The code = Estimated % system wh ich generated Lysis) this result tra nsmitted reference range : <=7.5. The reference r becki was not used to int erpret this result as normal/abnormal . [facility] AllenRjjnxqrUKFSEIPHJB9079-12-28 02:41:00 Test Item Value Reference Range Interpretation Comments Max Amp (test code = Max Amp) 61 mm 52-71 [facility] AllenCybygxuVIRPIRYJWU9084-12-59 02:41:00 Test Item Value Reference Range Interpretation Comments Angle (test code = Angle) 72 degrees 64-80 [facility] AllenBabiisvFRNXBDRMQQ3890-05-53 02:41:00 Test Item Value Reference Range Interpretation Comments R-time (test code = R-time) 0.8 min 0.4-0.7 [facility] AllenKeyqkamPQTBBCXNNH5302-97-52 02:41:00 Test Item Value Reference Range Interpretation Comments K-time (test code = K-time) 1.4 min 0.6-2.3 [facility] AllenPuwigzaGCXWMLWGST3817-20-03 02:41:00 Test Item Value Reference Range Interpretation Comments Split Point (test code = Split Point) 0.6 min [facility] AllenKnlckosIVANPQVRAE1629-58-07 02:41:00 Test Item Value Reference Range Interpretation Comments ACT (TEG) (test code = ACT (TEG)) 121 s 86-118 [facility] AllenAsyrwwaNTTNGRSSMO0936-89-85 02:41:00 Test Item Value Reference Range Interpretation Comments Rapid TEG Sample Type Citrated Whole Blood (test code = Rapid TEG Sample Type) [facility] AllenEovgydxQXTOHIZJSP8310-68-31 02:41:00 Test Item Value Reference Range Interpretation Comments RBC Morph (test code = Normal (04/19/15 9:41 RBC Morph) PM) [facility] AllenBmhsdonLHUUPCZKHF1038-82-56 02:41:00 Test Item Value Reference Range Interpretation Comments Plt Morph (test code = Normal (04/19/15 9:41 Plt Morph) PM) [facility] AllenZpwnydpPTBUNKODIV1282-41-81 02:41:00 Test Item Value Reference Range Interpretation Comments Tot Cell Ct (test code = Tot Cell Ct) 100 1 [facility] AllenDcgueriWJKDHVLKLF9390-53-09 02:41:00 Test Item Value Reference Range Interpretation Comments Basophils (test code = 1.0 See_Comment [Aut omated message] The Basophils) system which ge nerated this result tra nsmitted reference range : <=1.0. The reference r becki was not used to int erpret this result as normal/abnormal . [facility] AllenJomlwkuWKRYZJYKBJ2708-28-61 02:41:00 Test Item Value Reference Range Interpretation Comments Atypical Lymphs (test code = Atypical 1.0 Lymphs) [facility] AllenBmaohghTXCESABLOR4955-57-21 02:41:00 Test Item Value Reference Range Interpretation Comments Lymphocytes (test code = Lymphocytes) 32.0 20.0-40.0 [facility] AllenDaoevgtNUFEWGHDFS3229-85-51 02:41:00 Test Item Value Reference Range Interpretation Comments Monocytes (test code = Monocytes) 5.0 2.0-12.0 [facility] AllenEdlddqbTSCHLCBAFX9729-58-54 02:41:00 Test Item Value Reference Range Interpretation Comments Bands (test code = 0.0 See_Comment [Automat ed message] The Bands) system which ge nerated this result transmit ria reference range : <=11.0. The reference r becki was not used to interpr et this result as bennett l/abnormal. [facility] AllenMzifxsaZXNSNHTIEK9054-81-19 02:41:00 Test Item Value Reference Range Interpretation Comments Monocytes # (test code 0.6 See_Comment [Aut omated message] The = Monocytes #) system which generated this result tra nsmitted reference range : <=0.8. The reference r becki was not used to int erpret this result as normal/abnormal . [facility] AllenTbvwyuiUIVGAFETVH2661-29-60 02:41:00 Test Item Value Reference Range Interpretation Comments Basophils # (test code 0.1 See_Comment [Aut omated message] The = Basophils #) system which generated this result tra nsmitted reference range : <=0.2. The reference r becki was not used to int erpret this result as normal/abnormal . [facility] AllenLxdtgjiAHOUEGDJFC8826-69-13 02:41:00 Test Item Value Reference Range Interpretation Comments Lymphocytes # (test code = Lymphocytes 4.1 1.0-5.5 #) [facility] AllenPnmxvhkNMAYMTIQYF8980-83-53 02:41:00 Test Item Value Reference Range Interpretation Comments Segs (test code = Segs) 61.0 45.0-75.0 [facility] AllenAlpclqvUKOKSRFMDF0801-67-71 02:41:00 Test Item Value Reference Range Interpretation Comments Segs-Bands # (test code = Segs-Bands #) 7.6 1.5-8.1 [facility]2015-06-12 02:41:00 Test Item Value Reference Range Interpretation Comments Lactic Acid Lvl (test code = Lactic 1.3 0.5-2.2 Acid Lvl) [facility] CenterCuyewyrFBYSLEWTJMAO4890-61-94 02:41:00 Test Item Value Reference Range Interpretation Comments AGAP (test code = AGAP) 15.7 10.0-20.0 [facility] CenterHkstlqsYLQJOUVBACRB8234-62-53 02:41:00 Test Item Value Reference Range Interpretation Comments eGFR (test code = eGFR) 82 [facility] CenterXgkdlmeDRIJQZNLNFDC6147-65-81 02:41:00 Test Item Value Reference Range Interpretation Comments Creatinine Lvl (test code = Creatinine 0.9 0.5-1.4 Lvl) [facility] CenterJhgbbwjCKWEBKMCUKMM5206-74-21 02:41:00 Test Item Value Reference Range Interpretation Comments BUN (test code = BUN) 16 7-22 [facility] CenterYvqbjqtNILPMYYTORXP8571-99-83 02:41:00 Test Item Value Reference Range Interpretation Comments Glucose Lvl (test code = Glucose Lvl) 98 70-99 [facility] CenterNmrdzpxJQDZMRUXJOUO3344-93-35 02:41:00 Test Item Value Reference Range Interpretation Comments Calcium Lvl (test code = Calcium Lvl) 8.9 8.5-10.5 [facility] CenterIeepvxnLLAJRSLNTISH5348-14-48 02:41:00 Test Item Value Reference Range Interpretation Comments CO2 (test code = CO2) 26 24-32 [facility] CenterVeqipfdBSTFCTCPDDPK0495-12-04 02:41:00 Test Item Value Reference Range Interpretation Comments Chloride Lvl (test code = Chloride Lvl) 101 95-109 [facility] CenterEopusreAFBIZCXRDWAO6862-38-19 02:41:00 Test Item Value Reference Range Interpretation Comments Potassium Lvl (test code = Potassium 3.7 3.5-5.1 Lvl) [facility] CenterRpmtwgjLUCKMZRBCREK2384-49-31 02:41:00 Test Item Value Reference Range Interpretation Comments Sodium Lvl (test code = Sodium Lvl) 139 135-145 [facility] AllenPgvcravRQWHVRGKUE7226-55-08 02:41:00 Test Item Value Reference Range Interpretation Comments WBC (test code = WBC) 12.4 3.7-10.4 [facility] AllenXopzxtrUMIZHDMXOC1890-29-29 02:41:00 Test Item Value Reference Range Interpretation Comments RBC (test code = RBC) 4.97 4.70-6.10 [facility] AllenJohsjexPBHWYIILYY3281-78-46 02:41:00 Test Item Value Reference Range Interpretation Comments Hgb (test code = Hgb) 14.2 14.0-18.0 [facility] AllenYzmrnzrROVPOSTVAB7811-68-67 02:41:00 Test Item Value Reference Range Interpretation Comments Hct (test code = Hct) 45.0 42.0-54.0 [facility] AllenWsojxqrJEBYNYJCFN2617-78-33 02:41:00 Test Item Value Reference Range Interpretation Comments MCV (test code = MCV) 90.4 80.0-94.0 [facility] AllenRftpicsSCYWFKFWAW5351-88-61 02:41:00 Test Item Value Reference Range Interpretation Comments MCH (test code = MCH) 28.6 pg 27.0-31.0 [facility] AllenEqedvgiVBUVKLTMCB7761-90-24 02:41:00 Test Item Value Reference Range Interpretation Comments MCHC (test code = MCHC) 31.7 32.0-36.0 [facility] AllenFkabfznMKNXNKDGNQ9427-36-40 02:41:00 Test Item Value Reference Range Interpretation Comments RDW (test code = RDW) 12.6 11.5-14.5 [facility] AllenYdergbqYOSRSFAYPK7118-47-48 02:41:00 Test Item Value Reference Range Interpretation Comments Platelet (test code = Platelet) 259 133-450 [facility] AllenAtjldtoJPQGDQJVGR8616-48-59 02:41:00 Test Item Value Reference Range Interpretation Comments MPV (test code = MPV) 8.2 7.4-10.4 [facility] AllenRasfmxsERVANEVWDS7859-26-20 02:41:00 Test Item Value Reference Range Interpretation Comments G-value (test code = G-value) 7.7 5.0-11.6 [facility] AllenShazqhcIGGHTLNBFH2830-06-69 02:41:00 Test Item Value Reference Range Interpretation Comments Estimated % Lysis (test 10.9 See_Comment [Au tomated message] The code = Estimated % system wh ich generated Lysis) this result tra nsmitted reference range : <=7.5. The reference r becki was not used to int erpret this result as normal/abnormal . [facility] AllenZjrwgyzWIJVZMFFKO8532-92-16 02:41:00 Test Item Value Reference Range Interpretation Comments Max Amp (test code = Max Amp) 61 mm 52-71 [facility] AllenQczptymYPTYMCMWZU9484-61-84 02:41:00 Test Item Value Reference Range Interpretation Comments Angle (test code = Angle) 72 degrees 64-80 [facility] AllenOhnmqcbHKODTDLBAK8127-10-63 02:41:00 Test Item Value Reference Range Interpretation Comments R-time (test code = R-time) 0.8 min 0.4-0.7 [facility] AllenPnjnaltLYYGYEQTVF4602-96-47 02:41:00 Test Item Value Reference Range Interpretation Comments K-time (test code = K-time) 1.4 min 0.6-2.3 [facility] AllenCszrqivHOGENPUOQZ3261-53-46 02:41:00 Test Item Value Reference Range Interpretation Comments Split Point (test code = Split Point) 0.6 min [facility] AllenTjgycoeOWJCDGHHTG3395-25-27 02:41:00 Test Item Value Reference Range Interpretation Comments ACT (TEG) (test code = ACT (TEG)) 121 s 86-118 [facility] AllenBojzavmDHRZLFABKM3367-19-35 02:41:00 Test Item Value Reference Range Interpretation Comments Rapid TEG Sample Type Citrated Whole Blood (test code = Rapid TEG Sample Type) [facility] AllenYemuximDJBFPYUXGE1860-55-91 02:41:00 Test Item Value Reference Range Interpretation Comments RBC Morph (test code = Normal (04/19/15 9:41 RBC Morph) PM) [facility] AllenKpxzodwERBRDGSOGL8000-78-97 02:41:00 Test Item Value Reference Range Interpretation Comments Plt Morph (test code = Normal (04/19/15 9:41 Plt Morph) PM) [facility] AllenPyontkaWUTSVHYLLU2599-33-55 02:41:00 Test Item Value Reference Range Interpretation Comments Tot Cell Ct (test code = Tot Cell Ct) 100 1 [facility] AllenMyqyqosGCDINPCMKX1770-25-30 02:41:00 Test Item Value Reference Range Interpretation Comments Basophils (test code = 1.0 See_Comment [Aut omated message] The Basophils) system which ge nerated this result tra nsmitted reference range : <=1.0. The reference r becki was not used to int erpret this result as normal/abnormal . [facility] AllenXckfsjvJSUDWTKNWQ2345-05-94 02:41:00 Test Item Value Reference Range Interpretation Comments Atypical Lymphs (test code = Atypical 1.0 Lymphs) [facility] AllenHokalpjKIZQTEAUIG0403-42-12 02:41:00 Test Item Value Reference Range Interpretation Comments Lymphocytes (test code = Lymphocytes) 32.0 20.0-40.0 [facility] AllenEjrddbuVRIKSZRRKG8184-73-39 02:41:00 Test Item Value Reference Range Interpretation Comments Monocytes (test code = Monocytes) 5.0 2.0-12.0 [facility] AllenSlwsgloPBYZVLMUBH7405-82-09 02:41:00 Test Item Value Reference Range Interpretation Comments Bands (test code = 0.0 See_Comment [Automat ed message] The Bands) system which ge nerated this result transmit ria reference range : <=11.0. The reference r becki was not used to interpr et this result as bennett l/abnormal. [facility] AllenJewudgzJJGTXYFJEH5216-91-69 02:41:00 Test Item Value Reference Range Interpretation Comments Monocytes # (test code 0.6 See_Comment [Aut omated message] The = Monocytes #) system which generated this result tra nsmitted reference range : <=0.8. The reference r becki was not used to int erpret this result as normal/abnormal . [facility] AllenYvighinJXPRYFQPCZ7447-67-74 02:41:00 Test Item Value Reference Range Interpretation Comments Basophils # (test code 0.1 See_Comment [Aut omated message] The = Basophils #) system which generated this result tra nsmitted reference range : <=0.2. The reference r becki was not used to int erpret this result as normal/abnormal . [facility] AllenEzrdkaqNGZBNRNUHB5743-55-04 02:41:00 Test Item Value Reference Range Interpretation Comments Lymphocytes # (test code = Lymphocytes 4.1 1.0-5.5 #) [facility] AllenUthcwmcLQFIMHUXOJ4511-80-40 02:41:00 Test Item Value Reference Range Interpretation Comments Segs (test code = Segs) 61.0 45.0-75.0 [facility] AllenIeojgxvGMEHQADVSK1870-20-62 02:41:00 Test Item Value Reference Range Interpretation Comments Segs-Bands # (test code = Segs-Bands #) 7.6 1.5-8.1 [place] [id number] 02:34:00 Test Item Value Reference Range Interpretation Comments Ethanol Lvl (test code = Ethanol Lvl) 3 [place] [id number] 02:34:00 Test Item Value Reference Range Interpretation Comments Etoh (%) (test code = Etoh (%)) 0.003 [place] [id number] 02:34:00 Test Item Value Reference Range Interpretation Comments Ethanol Lvl (test code = Ethanol Lvl) 3 [facility]SymttpgELEAIRQKSJ0379-26-76 02:34:00 Test Item Value Reference Range Interpretation Comments Etoh (%) (test code = Etoh (%)) 0.003 [facility]
[2022-10-22 23:37] LABS: SARS-COV-2 RT PCR NEGATIVE (NEGATIVE)
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
[2022-10-23 00:40] VITALS: BP 119/81; TEMP 98; O2SAT 96
== END 2022-10-23 00:02 | disposition home or self-care (01) ==
LOC: ER 22:00
DX: J06.9 Acute upper respiratory infection, unspecified (principal); Z20.822 Contact with and (suspected) exposure to COVID-19
CPT/HCPCS: 0241U; 99283